=== PATIENT | female | born 1965 | race Caucasian/White ===

== ENCOUNTER 2020-06-07 11:25 | Emergency (ER) | payer MEDICAID, SELFPAY ==
[2020-06-07 11:29] VITALS: BP 116/79; PULSE 89; RESP 16
--- NOTE | 2020-06-07 11:45 | DI.RAD_ITS ---
EXAM: XR SHOULDER RT COMPLETE 2+V CLINICAL HISTORY: scapular/shoulder pain. TECHNIQUE: 2D digital imaging was performed. COMPARISON: No exams were available for comparison FINDINGS: There is no evidence of fracture or dislocation or abnormal soft tissue calcifications. No degenerat salma changes in the glenohumeral joint. No osseous lesions. IMPRESSION: No significant radiographic findings. DATA REPOSITORY: RADIATION DOSE DELIVERED:
--- NOTE | 2020-06-07 11:45 | DI.RAD_ITS ---
EXAM: XR CHEST 1V IN DI DEPT CLINICAL HISTORY: R shoulder/scapular pain. TECHNIQUE: 2D digital imaging was performed. COMPARISON: No exams were available for comparison FINDINGS: Heart size is normal. The mediastinum is not widened. Lungs are clear. No infiltrates nor obvious pleural effusions. IMPRESSION: No acute pulmonary findings on this single upright PA view of the chest. DATA REPOSITORY: RADIATION DOSE DELIVERED: All CT scans at this facility use at least one of these dose optimization techniques: automated exposure control; mA and/or kV adjustment per patient size (includes targeted e xams where dose is matched to clinical indication); or iterative reconstruction.
--- NOTE | 2020-06-07 11:45 | DI.RAD_ITS ---
EXAM: XR CERVICAL SPINE COMP 4-5V CLINICAL HISTORY: R shoulder and neck pain. TECHNIQUE: 2D digital imaging was performed. COMPARISON: No exams were available for comparison FINDINGS: There Is No evidence of acute fracture. No prevertebral soft tissue swelling. The main finding here is chronic degenerative disc disease at C5-6 level with disc space narrowing and anterior osteophyte s. On the oblique views there are bilateral Luschka joint osteophytes evident at this level. There is mild retrolisthesis of C5 upon C6 and mild anterolisthesis C4 upon C5. There is normal disc heigh t at C4-5 level. The C6-C7 level exhibits normal disc height and no listhesis. There are no cervica l ribs. No osseous lesions. IMPRESSION: Chronic degenerative disc disease at C5-6 level. As above. DATA REPOSITORY: RADIATION DOSE DELIVERED:
--- NOTE | 2020-06-07 11:55 | ED.GENADUL_ITS ---
Discharge Plan Disposition Patient Disposition: HOME Condition: Improving Discharge Details Clinical Impression: Cervical radiculopathy, Rhomboid muscle pain Primary Care Provider: Unknown,Unknown ED Provider: Arsenio Gudino Home Meds and New Rx's Prescriptions: New methocarbamol 500 mg tablet 500 mg PO Q6H PRN (Reason: Back pain or spasm) Qty: 14 RF: 0 prednisone 20 mg tablet 20 mg PO BID 4 Days Qty: 8 RF: 0 Continued lisinopril 5 mg Tablet 5 mg PO DAILY RF: 0 lamotrigine [Lamictal] 150 mg Tablet 150 mg PO BID RF: 0 dextroamphetamine-amphetamine [Adderall XR] 20 mg Capsule,Extended Release 24hr 20 mg PO DAILY RF: 0 dextroamphetamine-amphetamine [Adderall] 20 mg Tablet 20 mg PO BID RF: 0 pantoprazole 20 mg Tablet,Delayed Release (Dr/Ec) 20 mg PO DAILY RF: 0 lorazepam 1 mg Tablet 1.5 mg PO DAILY PRNRF: 0 Medical Decision Making 54-year-old female presents from home with day 3 of right shoulder and neck pain. States she felt as if she had a crick in her neck. There is some improvement with Tylenol and lidocaine patch at home. She is also been trialing ibuprofen. She is not had a rash, illness, injury. She is tender along the trapezius muscle and rhomboids on the medial scapular border of the right shoulder. Differential diagnosis does include cervical disc disease, calcific tendinitis, in addition to trapezius and rhomboid strain. Patient referred for x-ray: Chest x-ray without acute findings. Right shoulder x-ray without significant findings. X-ray of the cervical spine: Chronic degenerative disc disease at C5-6 level. With the patient's complaints, I do feel there may be some component of cervical radiculopathy. I do believe she will benefit from a steroid burst. Additionally she does appear to have a component of rhomboid spasm for which physical therapy will be of some aid, as well as gentle massage and also will offer a trial of methocarbamol. Patient stable and improved, appropriate for discharge to home. HPI General Mode of arrival: ambulatory . Date/Time Provider Initiated Documentation: 06/07/20 11:27 . Limitations to Documentation: no limitations . Information obtained by: patient . History of Present Illness 54 year old F presents to the emergency department with the chief complaint of Right shoulder and neck pain, described as moderate, Quality is described as dull and constant, and is localized to the neck, right and upper extremity. Patient distal. Patient started experiencing this day(s) and it has been constant. Medication improves symptom(s), No exacerbating factors reported . Patient notes no other symptoms.; denies chest pain, cough and fever/chills. Patient did receive the following treatments prior to arrival, NSAID Related Data Home Medications Medication Instructions Recorded Confirmed dextroamphetamine-amphetamine 20 mg PO DAILY 06/07/20 06/07/20 [Adderall XR] dextroamphetamine-amphetamine 20 mg PO BID 06/07/20 06/07/20 [Adderall] lamotrigine [Lamictal] 150 mg PO BID 06/07/20 06/07/20 lisinopril 5 mg PO DAILY 06/07/20 06/07/20 lorazepam 1.5 mg PO DAILY PRN 06/07/20 06/07/20 methocarbamol 500 mg PO Q6H PRN #14 tab 06/07/20 pantoprazole 20 mg PO DAILY 06/07/20 06/07/20 prednisone 20 mg PO BID 4 Days #8 tab 06/07/20 Previous Rx's Medication Instructions Recorded methocarbamol 500 mg PO Q6H PRN #14 tab 06/07/20 prednisone 20 mg PO BID 4 Days #8 tab 06/07/20 Allergies Allergy/AdvReac Type Severity Reaction Status Date / Time No Known Allergies Allergy Unverified 06/07/20 11:40 General Stated Complaint: Orthopedic EDER: 3 Review of Systems Narrative: No fall or injury. No rash. No chest pain or difficulty breathing. No recent cough or illness. 6 systems reviewed and otherwise no [facility] Medical History Depression Hypertension Surgical History (Updated 06/07/20 @ 11:37 by Gregor Hicks) History of section History of tonsillectomy Social History Smoking/Tobacco Use Status: Current every day Tobacco Type: e-cigarettes Tobacco: How many years used: 2 Smoking risk assessment performed?: Yes Alcohol Intake: current Alcohol Intake frequency: a few times a month Alcohol type: wine Drug use: Rarely Substance use type: marijuana Do you feel safe at home: Yes Do you feel safe in your relationship?: Yes Exam Narrative Exam Narrative: GEN: awake, alert, oriented 3. Pleasant, well groomed, interactive. HEAD: Normocephalic, atraumatic EYES: PERRL, EOMI NECK: Full ROM, no ARTI, no menigismus. Right trapezius tenderness and mild spasm, right rhomboid tenderness. Normal motor function distribution of radial/ulnar/median nerve distally. CHEST/RESP: Nontender, clear to auscultation bilateral, no wheeze/rhonchi/rales CARDIOVASCULAR: RRR, no murmur, rub megan. 2+ Rad pulse bilateral EXT: Full ROM, no edema, no rash Neuro: Grossly normal neurologic exam, conversant, interactive. Psych: Speech fluent, thoughts congruent, affect normal Course Vital Signs Vital signs: Vital Signs Pulse 89 06/07/20 11:29 Respiratory Rate 16 06/07/20 11:29 Blood Pressure 116/79 06/07/20 11:29 Temperature Source Tympanic 06/07/20 11:29 Pulse 89 06/07/20 11:29 Respiratory Rate 16 06/07/20 11:29 Respiratory Effort 06/07/20 11:35 Blood Pressure 116/79 06/07/20 11:29 Blood Pressure Position Sitting 06/07/20 11:29 Oxygen Delivery Method Room Air 06/07/20 11:29 Oxygen Flow Rate 0 06/07/20 11:29 Pain Level 5 06/07/20 11:48
[2020-06-07] MEDS: predniSONE 20 MG TAB 40 MG PO (13:36)
[2020-06-07 13:45] VITALS: BP 139/92; PULSE 80; RESP 14; TEMP 36.7; O2SAT 98
[2020-06-07] MEDS: Methocarbamol 500 MG TAB 1000 MG PO (13:51)
--- NOTE | 2020-06-09 05:42 | NUR.NOTE ---
Nursing Note: Patient called today (0530 am) to ask about dosing for over the counter medications she is currently taking. Patient reports is taking 1000 mg tylenol every 3-4 hours (which she increased to 1500 mg today), 800 mg advil every 3-4 hours, and 500 mg of methocarbamol every 4-5 hours because the pain is getting to be too much. Provider here nick consulted about this concern and recommendation was for patient to try warm compress on top of medication and ice packs and if no relief, should consider reevaluation d/t increased and uncontrolled pain on shoulder. Patient also advised to take no more than 1000 mg of tylenol up to 4 times a day and advil no more than 4 times a day with meals. Patient also advised to follow prescribed dosing schedule for methocarbamol. Patient returns verbal understanding of information provided.
== END 2020-06-07 14:08 | disposition home or self-care (01) ==
PROVIDERS: Emergency Provider Emergency Medicine
DX: M54.12 Radiculopathy, cervical region (principal); M54.89 Other dorsalgia
CPT/HCPCS: 99284; 71045; 72050; 73030; 99283; J7512

== ENCOUNTER 2020-06-09 08:28 | Emergency (ER) | payer MEDICAID, SELFPAY ==
[2020-06-09 08:35] VITALS: BP 168/110; PULSE 107; RESP 20; TEMP 36.8; O2SAT 98
--- NOTE | 2020-06-09 08:45 | ED.GENADUL_ITS ---
Discharge Plan Disposition Patient Disposition: HOME Condition: Improving Discharge Details Clinical Impression: Cervical radiculopathy Primary Care Provider: Unknown,Unknown ED Provider: Rylie Lomeli Home Meds and New Rx's Prescriptions: New gabapentin 100 mg capsule 100 mg PO TID MDD 300 PRN (Reason: Nerve Pain) Qty: 14 RF: 0 Continued lisinopril 5 mg Tablet 5 mg PO DAILY RF: 0 lamotrigine [Lamictal] 150 mg Tablet 150 mg PO BID RF: 0 dextroamphetamine-amphetamine [Adderall XR] 20 mg Capsule,Extended Release 24hr 20 mg PO DAILY RF: 0 dextroamphetamine-amphetamine [Adderall] 20 mg Tablet 20 mg PO BID RF: 0 pantoprazole 20 mg Tablet,Delayed Release (Dr/Ec) 20 mg PO DAILY RF: 0 lorazepam 1 mg Tablet 1.5 mg PO DAILY PRNRF: 0 prednisone 20 mg tablet 20 mg PO BID 4 Days Qty: 8 RF: 0 Discontinued methocarbamol 500 mg tablet 500 mg PO Q6H PRN (Reason: Back pain or spasm) Qty: 14 RF: 0 Discharge Instructions Instructions: Cervical Radiculopathy (ED) Additional Instructions: Stop methocarbamol. Follow-up with orthopedic as directed. Take the gabapentin as prescribed up to 3 times daily as needed for the nerve pain. Please be aware it may cause you to be sleepy. Use the soft cervical collar as needed for comfort. Alternate ice and heat. Follow-up with primary care provider within 3 to 5 days. Referrals: Arsenio Ingram MD [MD CONSULTING PHYSICIAN] - 1 week (Cervical Radiculopathy) Discharge Data Discharge Date/Time-TO BE ENTERED AT DEPARTURE: 06/09/20 10:33 Medical Decision Making 54-year-old female presents to the ER chief complaint of right shoulder and arm pain and anxiety. She was seen here approximately 48 hours ago and was diagnosed with some cervical radiculopathy. She did have some C-spine x-rays x- rays of her shoulder and chest which showed some degenerative changes to C6 and 7. She reports since then pain has gotten worse and the medications are not helping. She has been taking Tylenol, ibuprofen and methocarbamol in addition to her regular prescribed daily medications. She reports nausea, no vomiting, denies any radiation of pain into her chest, denies any shortness of breath. She has taken a total of 2500 mg of Tylenol this morning, 800 mg of ibuprofen at 2 AM and 6 AM and 500 mg of methocarbamol prior to arrival. She reports she has been starting to take 800 mg ibuprofen every few hours, prednisone as prescribed and the methocarbamol every 6 hours as prescribed. She has a past medical history of depression and hypertension. She appears very anxious upon arrival. She stated that yesterday she wanted to due to the pain, however she denies any suicidal ideations or wanting to hurt herself. At this time labs ordered to evaluate liver and kidney function due to pain increase taking medications over the last few days. CBC largely unremarkable, CMP shows BUN of 20 creatinine 0.7 GFR greater than 60, glucose 154. AST ALT and alk phos are all within normal limits. Urinalysis is also largely unremarkable. Tylenol level is 12 which is nontoxic, salicylate level less than 2.8. 0953: Patient reevaluation she is continuing to complain of right arm pain. We will give her gabapentin for what I do believe is cervical radiculopathy as previously diagnosed. She does find relief with inverting herself and bending forward. We will place a soft cervical collar to see if this relieves some of the pressure. Patient does report improvement in the pain after placement of the soft cervical collar. Prescription given for gabapentin 100 mg tablets up to 3 times daily as needed. Discussed caution with sedation with this medication. I did instruct her to stop the methocarbamol. Referral placed for orthopedics. Patient was given a disc of her x-ray for follow-up. Patient states that she may be moving out of town. Discussed strict return instructions with patient she verbalized understanding. Symptoms were improved prior to discharge home. Medical Records Medical records reviewed: Yes I reviewed the patient's medical records. Medical records narrative: C-spine x-ray from June 07, 2020: CLINICAL HISTORY: R shoulder and neck pain. TECHNIQUE: 2D digital imaging was performed. COMPARISON: No exams were available for comparison FINDINGS: There Is No evidence of acute fracture. No prevertebral soft tissue swelling. The main finding here is chronic degenerative disc disease at C5-6 level with disc space narrowing and anterior osteophytes. On the oblique views there are bilateral Luschka joint osteophytes evident at this level. There is mild retrolisthesis of C5 upon C6 and mild anterolisthesis C4 upon C5. There is normal disc height at C4-5 level. The C6-C7 level exhibits normal disc height and no listhesis. There are no cervical ribs. No osseous lesions. IMPRESSION: Chronic degenerative disc disease at C5-6 level. As above. HPI General Mode of arrival: ambulatory . Date/Time Provider Initiated Documentation: 06/09/20 08:30 . Limitations to Documentation: no limitations . Information obtained by: patient, RN notes reviewed and old records reviewed . HPI Narrative: 54-year-old female presents to the ER chief complaint of right sh oulder and arm pain and anxiety. She was seen here approximately 48 hours ago and was diagnosed with cervical radiculopathy. She did have some C-spine x-rays x-rays of her shoulder and chest which showed some degenerative changes to C6 and 7. She reports since then pain has gotten worse and the medications are not helping. She has been taking Tylenol, ibuprofen and methocarbamol and prednisone in addition to her regular prescribed daily medications. She reports nausea, no vomiting, denies any radiation of pain into her chest, denies any shortness of breath. She has taken a total of 2500 mg of Tylenol this morning, 800 mg of ibuprofen at 2 AM and 6 AM and 500 mg of methocarbamol prior to arrival. She reports she has been starting to take 800 mg ibuprofen every few hours, prednisone as prescribed and the methocarbamol every 6 hours as prescribed. She has a past medical history of depression and hypertension. She appears very anxious upon arrival. She stated that yesterday she wanted to due to the pain, however she denies any suicidal ideations or wanting to hurt herself. Related Data Home Medications Medication Instructions Recorded Confirmed dextroamphetamine-amphetamine 20 mg PO DAILY 06/07/20 06/09/20 [Adderall XR] dextroamphetamine-amphetamine 20 mg PO BID 06/07/20 06/09/20 [Adderall] lamotrigine [Lamictal] 150 mg PO BID 06/07/20 06/09/20 lisinopril 5 mg PO DAILY 06/07/20 06/09/20 lorazepam 1.5 mg PO DAILY PRN 06/07/20 06/09/20 pantoprazole 20 mg PO DAILY 06/07/20 06/09/20 prednisone 20 mg PO BID 4 Days #8 tab 06/07/20 06/09/20 gabapentin 100 mg PO TID PRN #14 cap MDD 300 06/09/20 Previous Rx's Medication Instructions Recorded prednisone 20 mg PO BID 4 Days #8 tab 06/07/20 gabapentin 100 mg PO TID PRN #14 cap MDD 300 06/09/20 Allergies Allergy/AdvReac Type Severity Reaction Status Date / Time No Known Allergies Allergy Unverified 06/07/20 11:40 General Stated Complaint: Orthopedic EDER: 3 Review of Systems Narrative: Constitutional: Negative for weight loss, alert and oriented, well groomed, normal body habitus, appears anxious HEENT: Denies trauma, headaches, blurry vision, nasal discharge, sore throat, trouble swallowing. Chest: Denies chest pain, palpitations, irregular rhythm, hypertension. Respiratory: Denies Shortness of breath, cough, hemoptysis. GI: Denies abdominal pain, nausea, vomiting, diarrhea, constipation. : Denies dysuria, hematuria, flank pain, rectal bleeding. No loss of bowel or bladder control. Musculoskeletal: Reports right shoulder pain with radiation down the right arm in the dorsum of her right hand. Pain is relieved when lying down, or bending her head forward, worse with movement. Neuro: Denies dizziness, blurry vision, weakness, syncope, headache or facial numbness. Hematologic: Denies easy bruising, intolerance to heat or cold, hair loss. [facility] Medical History Depression Hypertension Surgical History History of section History of tonsillectomy Social History Smoking/Tobacco Use Status: Current every day Tobacco Type: e-cigarettes Tobacco: How many years used: 2 Smoking risk assessment performed?: Yes Alcohol Intake: current Alcohol Intake frequency: a few times a month Alcohol type: wine Drug use: Rarely Substance use type: marijuana Do you feel safe at home: Yes Do you feel safe in your relationship?: Yes Exam Narrative Exam Narrative: Constitutional: Alert and oriented x3. Appears stated age. Normal body habitus. Head: Normocephalic, no trauma. Eyes: Pupils PERRLA, Red reflex noted, EOM's intact. Eyelids symmetrical without lesions, discharge, or swelling. ENT: Bilateral TM's WNL, External ear normal to inspection, no mastoid TTP, swelling, or erythema, Nasal turbinates WNL, no nasal discharge. Normal dentition, Posterior pharynx WNL, no exudate. Chest: RRR, Normal S1, S2, distal pulses intact. Resp: Lungs clear to auscultation bilaterally, no wheezes, rales, or rhonchi. Musculoskeletal: Normal gait, 5/5 strength to all four extremities. No deformity, no elicited pain with palpation of the posterior scapula or the shoulder area. Mild C-spine tenderness with palpation crepitus no step-off. Circulation sensation movement intact to bilateral upper extremities. Skin: No suspicious rashes or lesions. Capillary refill less than 2 sec. Neurologic: Cranial nerves II-XII intact. Alert and oriented x 3. Does report nerve-type pain into the dorsum of right hand. Hematologic/Lymphatic: No ecchymosis, no lymphadenopathy. Course Vital Signs Vital signs: Vital Signs Temperature 36.8 C 06/09/20 08:35 Pulse 107 H 06/09/20 08:35 Respiratory Rate 20 06/09/20 08:35 Blood Pressure 168/110 H 06/09/20 08:35 Pulse Oximetry 98 06/09/20 08:35 Temperature 36.8 C 06/09/20 08:35 Temperature Source Temporal Artery Scan 06/09/20 08:35 Pulse 107 H 06/09/20 08:35 Respiratory Rate 20 06/09/20 08:35 Respiratory Effort 06/09/20 08:39 Blood Pressure 168/110 H 06/09/20 08:35 Blood Pressure Position Supine 06/09/20 08:35 Pulse Oximetry 98 06/09/20 08:35 Oxygen Delivery Method Room Air 06/09/20 08:35 Oxygen Flow Rate 0 06/09/20 08:35 Pain Level 10 06/09/20 08:40
[2020-06-09] MEDS: LORazepam 2 MG/ML VIAL 0.5 MG IVP (08:53)
[2020-06-09] MEDS: Normal Saline 1,000 ML 1000 ML IV (08:54)
[2020-06-09 09:05] LABS: Abs Immature Grans 0.05 10^3/uL (0.0-0.06); Absolute Basophil Count 0.01 10^3/uL (0.0-0.2); Absolute Monocyte Count 0.33 10^3/uL (0.1-0.8); Absolute Neutrophil Count 7.77 10^3/uL (1.2-6.7); Basophils % 0.1; HCT 39.8 % (36.0-46.0); HGB 12.8 g/dL (11.2-15.7); Immature Grans % 0.5; Lymphocytes % 10.9; MCH 29.2 pg (27.0-33.0); MCHC 32.2 % (32.0-36.0); MCV 90.9 fL (80-95); MPV 9.3 fL (8.0-11.0); Monocytes % 3.6; Neutrophils % 84.9; Nucleated RBC 0 %; Platelet Count 343 10^3/uL (130-400); RBC 4.38 10^6/uL (3.93-5.22); RDW 13.1 % (11.7-14.6); RDW-SD 42.8 fL; WBC 9.16 10^3/uL (4.4-10.8)
[2020-06-09 09:19] LABS: ALT 25 U/L (14-59); AST 17 U/L (15-37); Albumin 4.3 g/dL (3.4-5.0); Alkaline Phosphatase 61 U/L (46-116); Anion Gap 10.5 mmol/L (3-11); BUN 20 mg/dL (7-18); Bilirubin, Total 0.2 mg/dL (0.2-1.0); CO2 26.5 mmol/L (21.0-32.0); CREATININE 0.7 mg/dL (0.55-1.02); Calcium 9.2 mg/dL (8.5-10.1); Chloride 105 mmol/L (98-107); Glucose 154 mg/dL (74-106); Magnesium 2.2 mg/dL (1.8-2.4); Potassium 3.5 mmol/L (3.5-5.1); Sodium 142 mmol/L (136-145); Total Protein 8.1 g/dL (6.4-8.2)
[2020-06-09 09:29] LABS: Bilirubin Small (Negative); Blood Negative (Negative); Clarity Clear (Clear); Glucose Negative (Negative); Ketones Negative (Negative); Leukocyte Esterase Negative (Negative); Nitrite Negative (Negative); Specific Gravity >= 1.030 (1.005-1.025); Urobilinogen 0.2 EU/dL (Up TO 0.2)
[2020-06-09 09:36] LABS: Acetaminophen 12 ug/mL (10-30)
[2020-06-09 09:37] LABS: Salicylate < 2.8 mg/dL (<2.8)
[2020-06-09 09:38] LABS: Bacteria Negative HPF (Negative); Casts 3-5 Hyaline LPF (Negative); Crystals Negative HPF (Negative); Epithelial Cells Few HPF (Negative); Mucus Trace (Negative); RBC 0-2 HPF (0-2)
[2020-06-09 09:40] LABS: C & S Indicated? No
[2020-06-09] MEDS: Gabapentin 300 MG CAP PO (09:49)
--- NOTE | 2020-06-09 09:59 | NUR.NOTE ---
Nursing Note: c-collar soft 2.5 applied for comfort. pt sts helps with pain. denies any needs at this time.
[2020-06-09 10:11] VITALS: BP 127/77; PULSE 93; RESP 16; O2SAT 98
== END 2020-06-09 10:33 | disposition home or self-care (01) ==
PROVIDERS: Emergency Provider Registered Nurse Emergency
DX: M54.12 Radiculopathy, cervical region (principal)
CPT/HCPCS: 80053; 96361; 96374; 99284; 80329; 81003; 81015; 83735; 85025; 99283; J2060

== ENCOUNTER 2020-06-12 18:39 | Emergency (ER) | payer MEDICAID, SELFPAY ==
[2020-06-12 18:44] VITALS: BP 180/114; PULSE 102; TEMP 36.2; O2SAT 100
[2020-06-12] MEDS: Lidocaine 5% Patch 1 PATCH TP (20:23)
[2020-06-12] MEDS: Ketorolac 30 MG/ML VIAL IVP (20:23)
[2020-06-12] MEDS: Lactated Ringers 500 ML IV (20:23)
[2020-06-12 20:28] LABS: Abs Immature Grans 0.07 10^3/uL (0.0-0.06); Absolute Basophil Count 0.02 10^3/uL (0.0-0.2); Absolute Eosinophil Count 0.06 10^3/uL (0.0-0.7); Absolute Lymphocyte Count 3.53 10^3/uL (1.2-3.4); Absolute Monocyte Count 0.55 10^3/uL (0.1-0.8); Absolute Neutrophil Count 3.55 10^3/uL (1.2-6.7); Basophils % 0.3; Eosinophils % 0.8; HCT 37.1 % (36.0-46.0); HGB 12.2 g/dL (11.2-15.7); Immature Grans % 0.9; Lymphocytes % 45.4; MCH 29.3 pg (27.0-33.0); MCHC 32.9 % (32.0-36.0); MCV 89.2 fL (80-95); MPV 8.7 fL (8.0-11.0); Monocytes % 7.1; Neutrophils % 45.5; Nucleated RBC 0 %; Platelet Count 295 10^3/uL (130-400); RBC 4.16 10^6/uL (3.93-5.22); RDW 13.2 % (11.7-14.6); WBC 7.78 10^3/uL (4.4-10.8)
[2020-06-12 20:43] LABS: ALT 25 U/L (14-59); AST 13 U/L (15-37); Albumin 3.8 g/dL (3.4-5.0); Alkaline Phosphatase 44 U/L (46-116); Anion Gap 8.6 mmol/L (3-11); BUN 17 mg/dL (7-18); Bilirubin, Total 0.2 mg/dL (0.2-1.0); CO2 29.4 mmol/L (21.0-32.0); CREATININE 0.7 mg/dL (0.55-1.02); Calcium 8.5 mg/dL (8.5-10.1); Chloride 104 mmol/L (98-107); Glucose 85 mg/dL (74-106); Potassium 3.3 mmol/L (3.5-5.1); Sodium 142 mmol/L (136-145); Total Protein 7.1 g/dL (6.4-8.2)
[2020-06-12 20:44] LABS: Acetaminophen < 2 ug/mL (10-30)
[2020-06-12] MEDS: Potassium Chloride 20 MEQ TABCR PO (21:14)
[2020-06-12] MEDS: Gabapentin 100 MG CAP 200 MG PO ×2 (21:56→22:35)
--- NOTE | 2020-06-12 22:09 | ED.GENADUL_ITS ---
Discharge Plan Disposition Patient Disposition: HOME Condition: Stable Discharge Details Clinical Impression: Cervical radiculopathy, Rhomboid muscle pain Primary Care Provider: Unknown,Unknown ED Provider: Amadeo Welsh Home Meds and New Rx's Prescriptions: New gabapentin 100 mg capsule 200 mg PO TID 7 Days Qty: 40 RF: 0 Continued lisinopril 5 mg Tablet 5 mg PO DAILY RF: 0 lamotrigine [Lamictal] 150 mg Tablet 150 mg PO BID RF: 0 dextroamphetamine-amphetamine [Adderall XR] 20 mg Capsule,Extended Release 24hr 20 mg PO DAILY RF: 0 dextroamphetamine-amphetamine [Adderall] 20 mg Tablet 20 mg PO BID RF: 0 pantoprazole 20 mg Tablet,Delayed Release (Dr/Ec) 20 mg PO DAILY RF: 0 lorazepam 1 mg Tablet 1.5 mg PO DAILY PRNRF: 0 Discontinued gabapentin 100 mg capsule 100 mg PO TID MDD 300 PRN (Reason: Nerve Pain) Qty: 14 RF: 0 Discharge Instructions Instructions: Gabapentin (By mouth), Cervical Radiculopathy (ED) Additional Instructions: Please take ibuprofen over the counter. Take 600mg by mouth every 6 hours as needed for pain. Please take acetaminophen (tylenol) - 500mg every 4-6 hours by mouth as needed for pain. Use [id number] cough lidocaine patches. Dose according to label Please follow-up with your primary care physician or a local PCP. Additional diagnostic testing including MRI of the cervical spine may be necessary should symptoms persist or new concerning symptoms develop. Return to the ER immediately for any worsening or new concerning symptoms. Discharge Data Discharge Date/Time-TO BE ENTERED AT DEPARTURE: 06/12/20 22:50 Medical Decision Making 54-year-old female recently diagnosed with cervical radiculopathy and muscle spasm, degenerative disc disease of the cervical spine on x-ray returns to ED with persistent pain and paresthesias of the right upper extremity, she has run out of gabapentin prescription. Patient has been taking a significant amount of Tylenol. Consider acetaminophen toxicity. Patient was given Toradol 30 mg IV, gabapentin 200 mg, IV fluid rehydration and lidocaine patch placed. Labs reviewed and no leukocytosis noted. Normal Tylenol and LFTs. I suspect patient is suffering from continued cervical radiculopathy and would benefit from continued gabapentin as well as continued anti-inflammatory. Plan will be for continuation of gabapentin as this is providing relief and close out close outpatient follow-up. I explained that if her symptoms do persist or she develops new concerning symptoms including weakness she will need additional outpatient diagnostic testing including MRI. Plan for close out patient follow-up with her PCP in [place] or locally if follow-up cannot be arranged with her PCP. Disposition decision was made weighing the risks and benefits of hospitalization versus outpatient treatment, the risk for further decompensation, and the patient's wishes. The patient was stable and requested discharge. Prior to discharge, my usual and customary return precautions were reviewed with the patient - this included follow-up instructions and reason to return to the emergency department if condition worsens, does not improve as expected, or other new concerns arise. I discussed Tylenol dosing with the patient. She understands risk of overdosing on Tylenol. HPI General Mode of arrival: ambulatory . Date/Time Provider Initiated Documentation: 06/12/20 18:56 . Limitations to Documentation: no limitations . Information obtained by: patient . HPI Narrative: 54-year-old female with history of depression and anxiety presents with chief complaint of pain in her right neck and arm. She notes that pain started about 1 week ago when she woke up feeling like she had a crick in her neck. She does not recall any specific trauma but does note that she has been lifting heavy objects with recent moving. She notes that she was seen here in the emergency department on 06/04/2020 having had the pain for a couple days and was diagnosed with cervical radicu lopathy and muscle spasm.. She was started on a prednisone burst and low-carb. She returned on 06/07/20 with worsening pain and concern that the methocarbamol was not helping. She had unremarkable blood work on her second visit and was started on gabapentin 100 mg 3 times daily. She was instructed to stop the methocarbamol. Patient notes that since discharge, she has completed prednisone burst and also notes that she has completed gabapentin course. She states she had been taking more gabapentin than prescribed as it did seem to help her pain. She notes that she has been taking a significant of Tylenol as well and up to 4 g daily. She continues to intermittently use ibuprofen. Patient also notes that she is prescribed lorazepam for anxiety which she takes when she has to drive. She took lorazepam prior to driving here today and thinks that this may be helping symptoms. Patient notes associated tingling numbness in her anterior lateral arm and digits 1-4. No weakness. No fever or rash. Patient denies headache . Related Data Home Medications Medication Instructions Recorded Confirmed dextroamphetamine-amphetamine 20 mg PO DAILY 06/07/20 06/12/20 [Adderall XR] dextroamphetamine-amphetamine 20 mg PO BID 06/07/20 06/12/20 [Adderall] lamotrigine [Lamictal] 150 mg PO BID 06/07/20 06/12/20 lisinopril 5 mg PO DAILY 06/07/20 06/12/20 lorazepam 1.5 mg PO DAILY PRN 06/07/20 06/12/20 pantoprazole 20 mg PO DAILY 06/07/20 06/12/20 gabapentin 200 mg PO TID 7 Days #40 cap 06/12/20 06/12/20 Previous Rx's Medication Instructions Recorded gabapentin 200 mg PO TID 7 Days #40 cap 06/12/20 Allergies Allergy/AdvReac Type Severity Reaction Status Date / Time No Known Allergies Allergy Unverified 06/12/20 18:51 General Stated Complaint: Nk/Back Pain EDER: 3 Review of Systems Constitutional Constitutional: Denies fever(s) ENT Comments: Patient notes that a couple weeks ago she had some swelling to her lower face and thought she had some dental inflammation, this resolved Cardiovascular Cardiovascular: Denies chest pain Integumentary/Breasts Skin/Breast: Denies rash Neurologic Neurologic: Reports as per [facility] Medical History Depression Hypertension Surgical History History of section History of tonsillectomy Social History Smoking/Tobacco Use Status: Current every day Tobacco Type: e-cigarettes Tobacco: How many years used: 2 Smoking risk assessment performed?: Yes Alcohol Intake: current Alcohol Intake frequency: a few times a month Alcohol type: wine Drug use: Rarely Substance use type: marijuana Do you feel safe at home: Yes Do you feel safe in your relationship?: Yes Exam Const General: cooperative and no acute distress HENMT Head: normocephalic and atraumatic Mouth: moist mucous membranes Eyes Conjunctivae: normal conjunctivae Sclera: normal sclerae EOM: EOM intact bilaterally Neck Neck: trachea midline and supple Resp Auscultation: clear to auscultation bilaterally, no rales, no rhonchi and no wheezes Cardio Rate: regular rate and not tachycardic Rhythm: regular rhythm Back/Spine/Pelvis Cervical Spine: cervical muscular tenderness (rt) and No cervical spinal tenderness Thoracic/Lumbar Spine: thoracic and lumbar spine normal to inspection Skin General skin exam: no rashes or lesions noted Neuro General: patient alert, patient awake, patient oriented x3 and tone normal Psych Appearance: grossly normal Mental Status: mental status grossly normal Speech and Movement: speech and movement normal Affect: anxious affect Course Vital Signs Vital signs: Vital Signs Temperature 36.2 C L 06/12/20 18:44 Pulse 102 H 06/12/20 18:44 Blood Pressure 180/114 H 06/12/20 18:44 Pulse Oximetry 100 06/12/20 18:44 Temperature 36.2 C L 06/12/20 18:44 Temperature Source Temporal Artery Scan 06/12/20 18:44 Pulse 102 H 06/12/20 18:44 Respiratory Effort Non-Labored 06/12/20 18:50 Blood Pressure 180/114 H 06/12/20 18:44 Blood Pressure Position Sitting 06/12/20 18:44 Pulse Oximetry 100 06/12/20 18:44 Oxygen Delivery Method Room Air 06/12/20 18:44 Oxygen Flow Rate 0 06/12/20 18:44 Pain Level 10 06/12/20 18:44 Lab/Test Results Lab/Test Results: Laboratory Tests Range/Units 06/12/20 06/12/20 20:10 20:10 WBC (4.4-10.8) 10^3/uL 7.78 RBC (3.93-5.22) 10^6/uL 4.16 Hgb (11.2-15.7) g/dL 12.2 Hct (36.0-46.0) % 37.1 MCV (80-95) fL 89.2 MCH (27.0-33.0) pg 29.3 MCHC (32.0-36.0) % 32.9 RDW (11.7-14.6) % 13.2 Plt Count (130-400) 10^3/uL 295 MPV (8.0-11.0) fL 8.7 Immature Gran % 0.9 Neutrophils % 45.5 Lymphocytes % 45.4 Monocytes % 7.1 Eosinophils % 0.8 Basophils % 0.3 Nucleated RBC % % 0 Absolute Neutrophils (1.2-6.7) 10^3/uL 3.55 Absolute Lymphocytes (1.2-3.4) 10^3/uL 3.53 H Absolute Monocytes (0.1-0.8) 10^3/uL 0.55 Absolute Eosinophils (0.0-0.7) 10^3/uL 0.06 Absolute Basophils (0.0-0.2) 10^3/uL 0.02 Sodium (136-145) mmol/L 142 Potassium (3.5-5.1) mmol/L 3.3 L Chloride (98-107) mmol/L 104 Carbon Dioxide (21.0-32.0) mmol/L 29.4 Anion Gap (3-11) mmol/L 8.6 BUN (7-18) mg/dL 17 Creatinine (0.55-1.02) mg/dL 0.7 Estimated GFR/1.73 m2 (mL/min/1.73m2) >= 60.00 Glucose (74-106) mg/dL 85 Calcium (8.5-10.1) mg/dL 8.5 Total Bilirubin (0.2-1.0) mg/dL 0.2 AST (15-37) U/L 13 L ALT (14-59) U/L 25 Alkaline Phosphatase (46-116) U/L 44 L Total Protein (6.4-8.2) g/dL 7.1 Albumin (3.4-5.0) g/dL 3.8 Acetaminophen (10-30) ug/mL < 2
--- NOTE | 2020-06-12 22:19 | NUR.NOTE ---
Nursing Note: REFERAL SENT TO CM TO MAKE APPOINTMENT WITH PRIMARY THIS WEEK FOR CERVICAL ISSUES AND TO BE AWARE OF THIRD ED VISIT RECENTLY 06/12/20
[2020-06-12 22:20] VITALS: BP 129/98; PULSE 90; RESP 16; O2SAT 99
[2020-06-12] MEDS: Acetaminophen 500 MG TAB PO (22:42)
--- NOTE | 2020-06-19 17:29 | PDOC.ERCMPRO ---
- If Service Date Differs Date of service: 06/15/20 Time of Service: 10:00 Care Management Progress Note Kia is seen in the ED for cervical radiculopathy and number in her hand. At the request of ED provider, a referral is sent to THAD Nuñez, of [facility], on-call provider, to assist Kia in obtaining a follow up appointment and in establishing care with a PCP. She has Medicaid for insurance.
== END 2020-06-12 22:50 | disposition home or self-care (01) ==
PROVIDERS: Emergency Provider Student in an Organized Health Care Education/Training Program
DX: M54.12 Radiculopathy, cervical region (principal); M25.511 Pain in right shoulder; I71.01 Dissection of thoracic aorta
CPT/HCPCS: 70496; 70498; 71275; 80053; 87635; 93005; 96361; 96365; 96366; 96374; 96375; 96376; 99284; 99291; 99292; 80329; 84484; 85025; 85379; 93010; 99283; J1885; J2060; Q9967

== ENCOUNTER 2020-06-12 22:57 | Emergency (ER) | payer MEDICAID, SELFPAY ==
[2020-06-12 23:06] VITALS: BP 146/97; PULSE 93; RESP 16; TEMP 36.4; O2SAT 100
--- NOTE | 2020-06-12 23:30 | DI.CT_ITS ---
EXAM: CT THORAX CTA CLINICAL HISTORY: right shoulder and armchest and neck pain severe. TECHNIQUE: Imaging Protocol: CT angiography of the chest was performed using pulmonary embolus amira col. Multi planar reconstructions were performed. CONTRAST MATERIAL: Intravenous: Omnipaque 350 Contrast volume: 100 cc COMPARISON: CT CT BRAIN NECK CTA from 06/13/2020 FINDINGS: CHEST: PULMONARY ARTERIES: Less than optimally opacified. No central pulmonary emboli evident. LUNGS: There are no infiltrates nor evidence of pulmonary infarction.. There are no pleural effusions . MEDIASTINUM: There is no hilar nor mediastinal adenopathy. Visualized thyroid unremarkable. CARDIAC: Heart size is upper normal. There is no pericardial effusion. There is no significant shift of the interventricular septum. THORACIC AORTA: There is a Je[place] type A aortic dissection which begins just above the aortic root and involves the right lateral aspect of the brachiocephalic artery and the proximal aspect of the ri ght subclavian artery. No definite involvement of the common carotid arteries. No dissection flap s een in the descending thoracic aorta. There is no significant atherosclerotic disease evident within the aorta. PARTIALLY VISUALIZED UPPERMOST ABDOMEN: No obvious findings OSSEOUS: No significant osseous lesions.. IMPRESSION: 1. There is a [place] type A dissection of the ascending thoracic aorta as described above..This valdes s not have the appearance of motion artifact at this level. No dissection in the descending thoracic aorta and visualized upper abdomen. 2. Heart size is normal. There is no pericardial effusion/hemopericardium.. 3. No obvious central pulmonary emboli. Opacification of more distal pulmonary arteries is insuffici ent for assessment. 4. No pulmonary infiltrates nor pleural effusions. RADIATION DOSE DELIVERED: 317.29mGy.cm Total DLP DATA REPOSITORY: All CT scans at this facility are submitted to the National Radiology Data Registry (NRDR) Dose Index Registry (DIR) with the [employer] (ACR). RADIATION OPTIMIZATION: All CT scans at this facility use at least one of these dose optimization te chniques: automated exposure control; mA and/or kV adjustment per patient size (includes targeted exa ms where dose is matched to clinical indication); or iterative reconstruction.
--- NOTE | 2020-06-12 23:30 | RT.EKG_ITS ---
APPROVED REPORT Exam: Resting ECG Patient Location: E HR:107 bpm ECG Measurements Heart Rate 107 AXIS DE 165 P 62 QRSd 87 QRS 42 QT 321 T 52 QTc 429 Conclusion Sinus tachycardia...rate> 99 Physiciam:No stemi. small q wave in lead III. No other abnormality
--- NOTE | 2020-06-12 23:30 | DI.CT_ITS ---
EXAM: CT BRAIN NECK CTA CLINICAL HISTORY: severe right arm, neck, shoulder pain. TECHNIQUE: Imaging Protocol: Axial CT angiography was performed with multi-slice acquisition and mu lti-planar and/or 3D reconstructions. CONTRAST MATERIAL: Intravenous: Omnipaque 350 Contrast volume:structured data in ml COMPARISON: No exams were available for comparison FINDINGS: CTA Neck W: Anterior circulation: There is no significant stenosis at the origin of the common carotid arteries. There appears to be b ovine configuration of the aortic arch. Both common carotid arteries ascend with normal luminal diameters. There is heavily calcified plaque posterior wall upper carotid bifurcation proximal right internal artery with moderate stenosis at th is level. Above this level the internal carotid arteries patent in the neck. The opposite-left comm on carotid artery exhibits normal diameter. Mild plaque seen at the level of the bulb and proximal I CA with some mild stenosis at this level. Above this level the left ICA is patent in the neck and sk ull base. Posterior circulation: Both vertebral arteries originated conventional fashion off subclavian arteries with no stenosis at t heir origins and no significant stenosis in the subclavian arteries proximal to the vertebral artery takeoff points. Both vertebral arteries ascend in the foramen transversarium normal luminal diameter s, the right being dominant. There is no intraluminal thrombus either side and no evidence of verteb ral artery dissection. At the skull base both vertebral arteries contribute to the formation of the basilar artery. CTA Brain W: Anterior circulation: Both internal carotid arteries are patent in the skull base-carotid canals and are also demonstrated be patent within the cavernous sinuses. Supraclinoid aspects are patent. Both middle cerebral arter ies are patent. Both A1 segments are patent. Anterior cerebral arteries are also patent. There is no evidence of aneurysm at the level of the anterior communicating artery. Posterior circulation: Both vertebral arteries contribute to the formation of the basilar artery at the skull base. Basilar artery ascends in the midline with normal luminal diameter. Distally it gives off bilateral superio r cerebellar arteries and above this level terminates as patent bilateral posterior cerebral arteries . There is a thin posterior communicating artery noted on the left side of the [id number]-sw-Piabln. No aneurysms. CT BRAIN: There is no evidence of intracranial hemorrhage, mass effect, or shift of midline structures. There are no extra-axial fluid collections. Ventricles are not enlarged or shifted and there is no blood w ithin the ventricular system nor within the basal cisterns. There are no ring enhancing lesions in t he brain and no abnormal meningeal enhancement. IMPRESSION: 1. Patent intracranial arteries. No evidence of intracranial aneurysm. 2. No evidence of intracranial hemorrhage no ring enhancing lesions. 3. Moderate stenosis at both carotid bifurcations and proximal internal carotid arteries. RADIATION DOSE DELIVERED: 1,812.43mGy.cm Total DLP DATA REPOSITORY: All CT scans at this facility are submitted to the National Radiology Data Registry (NRDR) Dose Index Registry (DIR) with the [employer] (ACR). RADIATION OPTIMIZATION: All CT scans at this facility use at least one of these dose optimization te chniques: automated exposure control; mA and/or kV adjustment per patient size (includes targeted exa ms where dose is matched to clinical indication); or iterative reconstruction.
--- NOTE | 2020-06-12 23:34 | NUR.NOTE ---
Nursing Note: This RN enter room to start IV, pt already dressed standing up holding her purse asking this RN to tell Dr Jaquez, that I'm going to go. I don't want anything or tests, pls just tell the doctor that I'm going to leave and hurry. Dr Jaquez notified.
--- NOTE | 2020-06-12 23:57 | NUR.NOTE ---
Nursing Note: Per EDP , hold on ativan
[2020-06-13] VITALS (96 sets, daily range): BP systolic 116–174; BP diastolic 71–109; PULSE 71–115; RESP 10–32; O2SAT 80–100
[2020-06-13] MEDS: Normal Saline - Diluent 50 ML VIAL IV ×2 (00:10→00:39)
[2020-06-13 00:14] LABS: Troponin I < 0.05 ng/mL (<0.06)
[2020-06-13] MEDS: Normal Saline Flush 10 ML SYR IVP (00:16)
--- NOTE | 2020-06-13 00:56 | DI.VRAD_ITS ---
PROCEDURE INFORMATION: Exam: CT Angiography Head With Contrast, Arteriography Exam date and time: 06/12/2020 11:33 PM Age: 54 years old Clinical indication: Other: Severe right arm, neck, shoulder pain TECHNIQUE: Imaging protocol: Computed tomography angiography of the head with contrast. Exam focused on the arteries. 3D rendering (Not supervised by radiologist): MIP and/or 3D reconstructed images were created by the technologist. Contrast material: VISIPAQUE 320; Contrast volume: 85 ml; Contrast route: INTRAVENOUS (IV); COMPARISON: No relevant prior studies available. FINDINGS: ANTERIOR CIRCULATION: Right internal carotid artery: Intracranial segment is patent with no significant stenosis. No aneurysm. Right middle cerebral artery: No occlusion or significant stenosis. No aneurysm. Right anterior cerebral artery: No occlusion or significant stenosis. No aneurysm. Left internal carotid artery: Intracranial segment is patent with no significant stenosis. No aneurysm. Left middle cerebral artery: No occlusion or significant stenosis. No aneurysm. Left anterior cerebral artery: No occlusion or significant stenosis. No aneurysm. POSTERIOR CIRCULATION: Right vertebral artery: No occlusion or significant stenosis. No aneurysm. Left vertebral artery: No occlusion or significant stenosis. No aneurysm. Basilar artery: No occlusion or significant stenosis. No aneurysm. Right posterior cerebral artery: No occlusion or significant stenosis. No aneurysm. Left posterior cerebral artery: No occlusion or significant stenosis. No aneurysm. Brain: No definite mass, mass effect, or midline shift. Cerebral ventricles: No ventriculomegaly. Bones/joints: Unremarkable. No acute fracture. Soft tissues: Unremarkable. IMPRESSION: No large vessel stenosis or occlusion. PROCEDURE INFORMATION: Exam: CT Angiography Neck With Contrast Exam date and time: 06/12/2020 11:33 PM Age: 54 years old Clinical indication: Other: Severe right arm, neck, shoulder pain TECHNIQUE: Imaging protocol: Computed tomography angiography of the neck with contrast. 3D rendering (Not supervised by radiologist): MIP and/or 3D reconstructed images were created by the technologist. Radiation optimization: All CT scans at this facility use at least one of these dose optimization techniques: automated exposure control; mA and/or kV adjustment per patient size (includes targeted exams where dose is matched to clinical indication); or iterative reconstruction. Contrast material: VISIPAQUE 320; Contrast volume: 85 ml; Contrast route: INTRAVENOUS (IV); COMPARISON: No relevant prior studies available. FINDINGS: Right common carotid artery: No stenosis. No dissection or occlusion. Right internal carotid artery: Calcified plaque at the bulb with mild stenosis. No dissection or occlusion. Right external carotid artery: No occlusion or stenosis of the origin. Right vertebral artery: No stenosis. No dissection or occlusion. Left common carotid artery: No stenosis. No dissection or occlusion. Left internal carotid artery: Moderate stenosis at the bulb. No dissection or occlusion. Left external carotid artery: No occlusion or stenosis of the origin. Left vertebral artery: No stenosis. No dissection or occlusion. Bones/joints: No acute fracture. Soft tissues: Normal. No significant soft tissue swelling. IMPRESSION: No large vessel occlusion Moderate left and mild right carotid stenoses Patent vertebral arteries REFERENCES: NASCET CRITERIA. The degree of internal carotid artery stenosis is based on NASCET criteria. Normal is no stenosis. Mild is less than 50% stenosis. Moderate is 50-69% stenosis. Severe is 70% to 99% stenosis. Total occlusion is no detectable patent lumen. Dictated and Authenticated by: Dejan Argueta MD. Ordering:ELIZABETH Flor MD
[2020-06-13] MEDS: Omnipaque 350 MG/ML 50 ML BTL IJ (01:07)
--- NOTE | 2020-06-13 01:16 | W.ED.GENAD ---
Discharge Plan Disposition Patient Disposition: HOME Condition: Stable Discharge Details Clinical Impression: Aortic dissection, Acute pain of right shoulder Primary Care Provider: Unknown,Unknown ED Provider: Chacho Thomas Home Meds and New Rx's Prescriptions: Continued lisinopril 5 mg Tablet 5 mg PO DAILY RF: 0 lamotrigine [Lamictal] 150 mg Tablet 150 mg PO BID RF: 0 dextroamphetamine-amphetamine [Adderall XR] 20 mg Capsule,Extended Release 24hr 20 mg PO DAILY RF: 0 dextroamphetamine-amphetamine [Adderall] 20 mg Tablet 20 mg PO BID RF: 0 pantoprazole 20 mg Tablet,Delayed Release (Dr/Ec) 20 mg PO DAILY RF: 0 lorazepam 1 mg Tablet 1.5 mg PO DAILY PRNRF: 0 gabapentin 100 mg capsule 200 mg PO TID 7 Days Qty: 40 RF: 0 Medical Decision Making This is a 54-year-old female with a past medical history of depression, hypertension, anxiety, everyday smoker, who presents today for right neck shoulder and arm pain. Pain has been present for the last 6 days. Patient states that it came on suddenly without any particular aggravating factor. The pain is described as sharp, achy, pain found in her right neck and shoulder and upper chest. Currently she states that the pain feels like her arm and shoulder are breaking. She admits to numbness in her right arm intermittently that seems to come and go every few minutes. She denies any falls, trauma, fever or chills. She denies any IV or illicit drug use. Of note historically the patient was originally seen here on 06/07 where she had negative cervical spine x-rays, she was diagnosed with cervical radiculopathy and rhomboid muscle pain. She was started on NSAIDs, muscle relaxants and steroids. Patient had no improvement of her symptoms with this. She had only mild improvement when she would take Tylenol, but no improvement of significance with the other medications. During the early course of the pain she would have mild improvement with heat and the prednisone but this was only for 1 day. She came in again earlier this evening where she had some lab work performed, all of which was relatively unremarkable. Salicylate and acetaminophen levels were unremarkable. Liver function stable. She was discharged home and then came back moments later with severe worsening of her right arm neck and shoulder pain. Again she currently describes it as feeling like all the bones are breaking in conjunction with numbness in the right arm, and a burning sensation. Patient denies any previous cardiac history. No other complaints at this time. Examination of the patient shows no significant abnormalities. She has equal pulses good capillary refill good movement of the arm. No evidence of bony fracture or abnormality clinically. She does have diminished sensation subjectively over the C6-C7 C8-T1 dermatomes, however it is subjectively diminished, and sensation is still definitely present. No murmurs that I can detect otherwise. However the patient in spite of the relatively unremarkable findings appears to be in fairly severe pain. She is pacing around the room, holding her arm and shoulder, often times doubled over in pain. Vital signs demonstrate notable hypertension and mild to moderate tachycardia. Patient has been seen and evaluated 3 times here. Exams appeared unremarkable in those instances. Review of the previous episodes seems to demonstrate appropriate work-ups considering the clinical presentations at that. Currently with the patient's continued and present symptoms I do feel that broadening of the differential is appropriate. Cardiac etiology seems unlikely but with her risk factors is on the differential. Atypical aortic or vertebral or carotid pathology/dissection is on the differential. Reflex sympathetic dystrophy versus atypical neuropathic pain is certainly to be considered-in the absence of other objective viable findings. We will get an EKG and troponin, get a CTA of the chest and neck and head. I will offer the patient with morphine for pain control and also Ativan as she does appear to be very anxious with her symptoms at this time. Will monitor closely and reassess. 2:20 AM Radiology has called them contact me, they are concerned that the patient demonstrates a [place] type a/[place] type II aortic dissection. Area where the dissection may be occurring is in the area concerning for motion artifact, and this was discussed with radiology however they feel that upon review of the image lends itself to a much greater concern for likelihood for dissection than motion artifact. Esmolol was immediately ordered to bring down the patient's heart rate and blood pressure. Heart rate and blood pressure prior to treatment was 100 for heart rate, and 170 for systolic blood pressure. Pain is now better controlled and she is no longer writhing around holding her arm with 1 of Dilaudid, 8 of morphine and 1.5 of Ativan. I contacted cardiothoracic at [facility] and discussed the case with Dr. Arteaga of [facility]. He is concerned that the findings represent motion artifact. He did recommend getting a repeat CAT scan/CTA once her heart rate has come down to a more normal level with the esmolol. 3:55 AM Repeat CTA of the chest per virtual radiology demonstrates continued atypical abnormality of the aorta concerning for dissection, radiologist now feels that there is an interval change in appearance of the right brachiocephalic artery which now has a cuff of relative hypodensity surrounding the central opacified lumen. D-dimer was ordered and is normal. Patient remains on the esmolol drip for heart rate and blood pressure control. Upon repeat discussion, Dr. Arteaga still is concern for motion artifact, but with the 2 studies by radiology both concerned for this finding he does understand the current dilemma and situation. He recommends further evaluation with [facility]. Unfortunately upon discussion of transfer to the ED at [facility] for this the transfer center made it unequivocally clear that [facility] is not accepting patients for transfer at this level of acuity. Dr. Arteaga felt that perhaps transfer to a center with current stay/availability would be the next best option then. We did reach out to the [facility] and discussed the case with Dr. Valdivia, she agrees on the equivocal component of the imaging upon review of both images, but does understand the need for further testing. She has accepted the patient, the patient will be transferred directly to the emergency department at [facility]. Discussed the case with Dr. Painting, and she also agrees with the transfer and accepts to the ER. Unfortunately flight is not available, and local transportation services are not available under the esmolol drip. We discussed this with cardiothoracic and it is felt that transition to Cardizem drip will be ideal patient will be transitioned to this, and transferred via [facility]. I have extensively reviewed the treatment plan and discharge instructions with the patient. I have addressed all patient concerns at this time. The patient was made aware of what symptoms to monitor for that would warrant a return to the emergency department. Discussed the plan with the patient, they demonstrate verbal understanding and agreement with our assessment and plan at this time. The documentation in this chart was dictated using [employer] dictation software. Please excuse any dictation errors. At time of transfer patient demonstrates notable improvement of her pain as her blood pressure has been been decreased to 110 systolic, and heart rate is now in the 70s. Diltiazem drip is currently at 10 mg she has also been given a notable amount of Dilaudid morphine and Ativan to help. Patient demonstrates no mental status changes, no indication for intubation at this time FINDINGS: Pulmonary arteries: Not opacified limiting evaluation. Aorta: There continues to be an abnormal linear filling defect within the ascending thoracic aorta which has not significantly changed configuration from the earlier study but is difficult to completely distinguish from linear bands of motion artifact at the same level. Notably there is interval change in the appearance of the right brachiocephalic artery which now has a cuff of relative hypodensity surrounding the central opacified lumen. The remainder of the thoracic aorta is unremarkable. Lungs: No consolidation, mass or suspicious pulmonary nodule. Pleural spaces: No pneumothorax. No pleural effusion. Heart: No pericardial effusion. Lymph nodes: No mediastinal, hilar or axillary adenopathy. Bones/joints: No significant bony or joint space abnormality. Soft tissues: Extrathoracic soft tissues are unremarkable. IMPRESSION: 1. Aortic dissection cannot be excluded based on the CT findings and if there is still a clinical concern recommend follow-up cardiac gated MRA of the aorta and/or aortic echocardiography for further evaluation. 2. THIS REPORT CONTAINS FINDINGS THAT MAY BE CRITICAL TO PATIENT CARE. The findings were verbally communicated via telephone conference with CHACHO THOMAS at 3:41 AM EDT on 06/13/2020. The findings were acknowledged and understood. Thank you for allowing us to participate in the care of your patient. Dictated and Authenticated by: Arsenio Yoder MD 06/13/2020 3:42 AM Eastern Time ([place] & [place]) FINDINGS: Pulmonary arteries: Pulmonary arteries not well opacified. There is no gross central filling defect. Aorta:Great vessels off aortic arch: There is a vertically oriented linear filling defect within the right posterolateral aspect of the ascending thoracic aorta which is seen in 3 planes and consistent with an aortic dissection. The dissection begins just above the aortic root. It involves the right lateral aspect of the brachialcephalic artery and the proximal most aspect of the right subclavian artery. There is no definite involvement of the common carotid arteries, left sharing a common trunk with the brachiocephalic artery. Lungs: There is no consolidation or ground-glass disease. The central airways are patent. Pleural spaces: No pleural effusion or pneumothorax. Heart: No pericardial effusion/hemopericardium. Lymph nodes: No mediastinal, hilar or axillary adenopathy. Mediastinum: No hemomediastinum. Bones/joints: No significant bony or joint space abnormality. Soft tissues: Extrathoracic soft tissues are unremarkable. IMPRESSION: 1. [place] type A/[place] type II aortic dissection. 2. THIS REPORT CONTAINS FINDINGS THAT MAY BE CRITICAL TO PATIENT CARE. The findings were verbally communicated via telephone conference with CHACHO THOMAS at 1:42 AM EDT on 06/13/2020. The findings were acknowledged and understood. Thank you for allowing us to participate in the care of your patient. Dictated and Authenticated by: Arsenio Yoder MD FINDINGS: ANTERIOR CIRCULATION: Right internal carotid artery: Intracranial segment is patent with no significant stenosis. No aneurysm. Right middle cerebral artery: No occlusion or significant stenosis. No aneurysm. Right anterior cerebral artery: No occlusion or significant stenosis. No aneurysm. Left internal carotid artery: Intracranial segment is patent with no significant stenosis. No aneurysm. Left middle cerebral artery: No occlusion or significant stenosis. No aneurysm. Left anterior cerebral artery: No occlusion or significant stenosis. No aneurysm. POSTERIOR CIRCULATION: Right vertebral artery: No occlusion or significant stenosis. No aneurysm. Left vertebral artery: No occlusion or significant stenosis. No aneurysm. Basilar artery: No occlusion or significant stenosis. No aneurysm. Right posterior cerebral artery: No occlusion or significant stenosis. No aneurysm. Left posterior cerebral artery: No occlusion or significant stenosis. No aneurysm. Brain: No definite mass, mass effect, or midline shift. Cerebral ventricles: No ventriculomegaly. Bones/joints: Unremarkable. No acute fracture. Soft tissues: Unremarkable. IMPRESSION: No large vessel stenosis or occlusion FINDINGS: Right common carotid artery: No stenosis. No dissection or occlusion. Right internal carotid artery: Calcified plaque at the bulb with mild stenosis. No dissection or occlusion. Right external carotid artery: No occlusion or stenosis of the origin. Right vertebral artery: No stenosis. No dissection or occlusion. Left common carotid artery: No stenosis. No dissection or occlusion. Left internal carotid artery: Moderate stenosis at the bulb. No dissection or occlusion. Left external carotid artery: No occlusion or stenosis of the origin. Left vertebral artery: No stenosis. No dissection or occlusion. Bones/joints: No acute fracture. Soft tissues: Normal. No significant soft tissue swelling. IMPRESSION: No large vessel occlusion Moderate left and mild right carotid stenoses Patent vertebral arteries Thank you for allowing us to participate in the care of your patient. Dictated and Authenticated by: Dejan Argueta MD 06/13/2020 12:55 AM Eastern Time ([place] & [place]) HPI General Date/Time Provider Initiated Documentation: 06/12/20 23:00. HPI Narrative: This is a 54-year-old female with a past medical history of depression, hypertension, anxiety, everyday smoker, who presents today for right neck shoulder and arm pain. Pain has been present for the last 6 days. Patient states that it came on suddenly without any particular aggravating factor. The pain is described as sharp, achy, pain found in her right neck and shoulder and upper chest. Currently she states that the pain feels like her arm and shoulder are breaking. She admits to numbness in her right arm intermittently that seems to come and go every few minutes. She denies any falls, trauma, fever or chills. She denies any IV or illicit drug use. Of note historically the patient was originally seen here on 06/07 where she had negative cervical spine x-rays, she was diagnosed with cervical radiculopathy and rhomboid muscle pain. She was started on NSAIDs, muscle relaxants and steroids. Patient had no improvement of her symptoms with this. She had only mild improvement when she would take Tylenol, but no improvement of significance with the other medications. During the early course of the pain she would have mild improvement with heat and the prednisone but this was only for 1 day. She came in again earlier this evening where she had some lab work performed, all of which was relatively unremarkable. Salicylate and acetaminophen levels were unremarkable. Liver function stable. She was discharged home and then came back moments later with severe worsening of her right arm neck and shoulder pain. Again she currently describes it as feeling like all the bones are breaking in conjunction with numbness in the right arm, and a burning sensation. Patient denies any previous cardiac history. No other complaints at this time. Related Data Home Medications Medication Instructions Recorded Confirmed dextroamphetamine-amphetamine 20 mg PO DAILY 06/07/20 06/12/20 [Adderall XR] dextroamphetamine-amphetamine 20 mg PO BID 06/07/20 06/12/20 [Adderall] lamotrigine [Lamictal] 150 mg PO BID 06/07/20 06/12/20 lisinopril 5 mg PO DAILY 06/07/20 06/12/20 lorazepam 1.5 mg PO DAILY PRN 06/07/20 06/12/20 pantoprazole 20 mg PO DAILY 06/07/20 06/12/20 gabapentin 200 mg PO TID 7 Days #40 cap 06/12/20 06/12/20 Previous Rx's Medication Instructions Recorded gabapentin 200 mg PO TID 7 Days #40 cap 06/12/20 Allergies Allergy/AdvReac Type Severity Reaction Status Date / Time No Known Allergies Allergy Unverified 06/12/20 18:51 General Stated Complaint: Nk/Back Pain EDER: 4 Review of Systems All systems reviewed & are unremarkable except as noted in HPI and below PFSH Medical History Depression Hypertension Surgical History History of section History of tonsillectomy Social History Smoking/Tobacco Use Status: Current every day Tobacco Type: e-cigarettes Tobacco: How many years used: 2 Smoking risk assessment performed?: Yes Alcohol Intake: current Alcohol Intake frequency: a few times a month Alcohol type: wine Drug use: Rarely Substance use type: marijuana Do you feel safe at home: Yes Do you feel safe in your relationship?: Yes Exam Narrative Exam Narrative: 1.Const: Well-nourished, Well-developed, appearing stated age, appears to have notable distress secondary to pain in the right arm and shoulder 2.Eyes: PERRL, no conjunctival injection, and symmetrical lids. 3.ENT: Atraumatic external nose and ears. Moist MM. Neck: Symmetric, trachea midline, No thyromegaly. 4.CVS: +S1/S2, No murmurs or gallops. Peripheral pulses 2+ and equal in all extremities. Brisk capillary refill in all extremities. Radial pulses +2 bilaterally equal and equivalent. 5.RESP: Unlabored respiratory effort. Clear to auscultation bilaterally. No wheezes rales or rhonchi 6.GI: Soft, Nontender/Nondistended, No hepatosplenomegaly. No guarding or rebound. 7.MSK: Normocephalic/Atraumatic, Extremities w/o deformity or ttp No cyanosis or clubbing, Normal movement of all extremities. Patient's right arm demonstrates brisk capillary refill in all fingertips less than 2 seconds, this is identical to the right arm. Temperature of all arms appears equal. Sensation appears to be diminished on the right arm. She has intact sensation throughout however mild diminishment of sensation over the area of C6-C7-C8 and T1. Hot and cold sensation appropriate and intact. Patient demonstrates good range of motion for the right upper extremity. No focal bony tenderness, however she does have just severe diffuse tenderness throughout the right upper extremity in the shoulder and the humerus. No midline cervical thoracic or lumbar spine tenderness. No bruits. Pressure down on the patient's head/neck mildly does relieve a small component of the symptoms. 8.Skin: Warm, Dry. No rashes or lesions. 9.Neuro: online content developer II-XII grossly intact. Please see musculoskeletal 10.Psych: (AAO) x3. Notably anxious, pacing the room holding her right arm and shoulder. Course Vital Signs Vital signs: Vital Signs Temperature 36.4 C L 06/12/20 23:06 Pulse 93 H 06/12/20 23:06 Respiratory Rate 16 06/12/20 23:06 Blood Pressure 146/97 H 06/12/20 23:06 Pulse Oximetry 100 06/12/20 23:06 Temperature 36.4 C L 06/12/20 23:06 Temperature Source Skin 06/12/20 23:06 Pulse 93 H 06/12/20 23:06 Respiratory Rate 16 06/12/20 23:06 Respiratory Effort 06/12/20 23:11 Blood Pressure 146/97 H 06/12/20 23:06 Blood Pressure Position Supine 06/12/20 23:06 Pulse Oximetry 100 06/12/20 23:06 Oxygen Delivery Method Room Air 06/12/20 23:06 Oxygen Flow Rate 0 06/12/20 23:06 Pain Level 10 06/12/20 23:06 Lab/Test Results Lab/Test Results: Laboratory Tests Range/Units 06/12/20 23:52 Troponin I (<0.06) ng/mL < 0.05 Critical Care Time Critical Care Time Critical Care Time: Yes Total Critical Care Time: 90 Attestation: upon my evaluation, this patient had a high probability of imminent or life-threatening deterioration, which required my direct attention, intervention, and personal management. I have personally provided 90 minutes of critical care time exclusive of time spent on separately billable procedures. Time includes review of laboratory data, radiology results, discussion with consultants, and monitoring for potential decompensation. Interventions were performed as documented.
--- NOTE | 2020-06-13 01:42 | DI.VRAD_ITS ---
PROCEDURE INFORMATION: Exam: CTA Chest With Contrast Exam date and time: 06/12/2020 11:33 PM Age: 54 years old Clinical indication: Other: Right shoulder and arm chest and neck pain severe; Additional info: Severe right arm, neck, shoulder pain, right shoulder and armchest and neck pain severe TECHNIQUE: Imaging protocol: Computed tomographic angiography of the chest with contrast. 3D rendering (Not supervised by radiologist): MIP and/or 3D reconstructed images were created by the technologist. Total images: 1525 Radiation optimization: All CT scans at this facility use at least one of these dose optimization techniques: automated exposure control; mA and/or kV adjustment per patient size (includes targeted exams where dose is matched to clinical indication); or iterative reconstruction. Contrast material: VISIPAQUE 320; Contrast volume: 65 ml; Contrast route: INTRAVENOUS (IV); COMPARISON: CR XR CHEST 1V IN DI DEPT 06/07/2020 12:22 PM FINDINGS: Pulmonary arteries: Pulmonary arteries not well opacified. There is no gross central filling defect. Aorta:Great vessels off aortic arch: There is a vertically oriented linear filling defect within the right posterolateral aspect of the ascending thoracic aorta which is seen in 3 planes and consistent with an aortic dissection. The dissection begins just above the aortic root. It involves the right lateral aspect of the brachialcephalic artery and the proximal most aspect of the right subclavian artery. There is no definite involvement of the common carotid arteries, left sharing a common trunk with the brachiocephalic artery. Lungs: There is no consolidation or ground-glass disease. The central airways are patent. Pleural spaces: No pleural effusion or pneumothorax. Heart: No pericardial effusion/hemopericardium. Lymph nodes: No mediastinal, hilar or axillary adenopathy. Mediastinum: No hemomediastinum. Bones/joints: No significant bony or joint space abnormality. Soft tissues: Extrathoracic soft tissues are unremarkable. IMPRESSION: 1. [place] type A/DeBake[place] type II aortic dissection. 2. THIS REPORT CONTAINS FINDINGS THAT MAY BE CRITICAL TO PATIENT CARE. The findings were verbally communicated via telephone conference with MEENU THOMAS at 1:42 AM EDT on 06/13/2020. The findings were acknowledged and understood. Dictated and Authenticated by: Arsenio Yoder MD. Ordering:ELIZABETH Flor MD
[2020-06-13] MEDS: Lidocaine/Epinephri/Tetracaine Topical Gel 3 ML (01:58)
[2020-06-13] MEDS: LORazepam 2 MG/ML VIAL 0.5 MG IVP (01:58)
--- NOTE | 2020-06-13 02:00 | DI.CT_ITS ---
EXAM: CT THORAX CTA CLINICAL HISTORY: eval for dissection vs motion artifact. TECHNIQUE: Imaging Protocol: CT angiography of the chest was performed using pulmonary embolus amira col. Multi planar reconstructions were performed. CONTRAST MATERIAL: Intravenous: Omnipaque 350 Contrast volume: 100 cc COMPARISON: CT CT THORAX CTA from 06/13/2020 FINDINGS: CHEST: THORACIC AORTA: There appears to be redemonstration suspicion for aortic dissection in the ascending thoracic aorta as previously described.Probable involvement of the brachiocephalic artery is noted wh ich exhibits a surrounding cuff of relative hypodensity compared to the central opacified lumen. The re is no extension into the origin of the right common carotid artery nor into the left common caroti d artery which appears to share a common trunk. No evidence of dissection flap in the aortic arch di stal to the brachiocephalic nor in the descending thoracic aorta (which exhibits upper normal diamete r. Visualized upper aspect of the abdominal aorta is with no intimal flap. . CARDIAC: Heart size is upper normal. There is no pericardial effusion. LUNGS: There are no infiltrates, masses, or pleural effusions. MEDIASTINUM: No hilar nor mediastinal adenopathy. VISUALIZED UPPER ABDOMEN: The aorta appears unremarkable at this level. IMPRESSION: 1. Redemonstration of suspicion for [place] type A aortic dissection. 2. There is no pericardial effusion/hemopericardium. 3. Lungs are clear and there are no pleural effusions. RADIATION DOSE DELIVERED: 319.23mGy.cm Total DLP DATA REPOSITORY: All CT scans at this facility are submitted to the National Radiology Data Registry (NRDR) Dose Index Registry (DIR) with the [employer] (ACR). RADIATION OPTIMIZATION: All CT scans at this facility use at least one of these dose optimization te chniques: automated exposure control; mA and/or kV adjustment per patient size (includes targeted exa ms where dose is matched to clinical indication); or iterative reconstruction.
[2020-06-13] MEDS: LORazepam 2 MG/ML VIAL 1 MG IVP (02:15)
[2020-06-13] MEDS: HYDROmorphone 2 MG/ML VIAL 1 MG IVP (02:15)
[2020-06-13] MEDS: Esmolol 100 MG/10 ML VIAL 27 MG IVP (02:32)
[2020-06-13 02:41] LABS: D-Dimer 204 ng/mlFEU (<500)
[2020-06-13] MEDS: ESMOLOL 2,500 MG/250 ML BAG 16.329 MG IV (02:59)
--- NOTE | 2020-06-13 03:42 | DI.VRAD_ITS ---
PROCEDURE INFORMATION: Exam: CTA Chest With Contrast Exam date and time: 06/13/2020 2:08 AM Age: 54 years old Clinical indication: Abnormal findings; Other: Aortic dissection; Patient HX: Eval for dissection vs motion artifact on prior cta chest exam as requested per [facility] TECHNIQUE: Imaging protocol: Computed tomographic angiography of the chest with contrast. 3D rendering (Not supervised by radiologist): MIP and/or 3D reconstructed images were created by the technologist. Total images: 1444 Radiation optimization: All CT scans at this facility use at least one of these dose optimization techniques: automated exposure control; mA and/or kV adjustment per patient size (includes targeted exams where dose is matched to clinical indication); or iterative reconstruction. Contrast material: VISIPAQUE 320; Contrast volume: 60 ml; Contrast route: INTRAVENOUS (IV); COMPARISON: CT THORAX CTA 06/13/2020 12:30 AM FINDINGS: Pulmonary arteries: Not opacified limiting evaluation. Aorta: There continues to be an abnormal linear filling defect within the ascending thoracic aorta which has not significantly changed configuration from the earlier study but is difficult to completely distinguish from linear bands of motion artifact at the same level. Notably there is interval change in the appearance of the right brachiocephalic artery which now has a cuff of relative hypodensity surrounding the central opacified lumen. The remainder of the thoracic aorta is unremarkable. Lungs: No consolidation, mass or suspicious pulmonary nodule. Pleural spaces: No pneumothorax. No pleural effusion. Heart: No pericardial effusion. Lymph nodes: No mediastinal, hilar or axillary adenopathy. Bones/joints: No significant bony or joint space abnormality. Soft tissues: Extrathoracic soft tissues are unremarkable. IMPRESSION: 1. Aortic dissection cannot be excluded based on the CT findings and if there is still a clinical concern recommend follow-up cardiac gated MRA of the aorta and/or aortic echocardiography for further evaluation. 2. THIS REPORT CONTAINS FINDINGS THAT MAY BE CRITICAL TO PATIENT CARE. The findings were verbally communicated via telephone conference with MEENU THOMAS at 3:41 AM EDT on 06/13/2020. The findings were acknowledged and understood. Dictated and Authenticated by: Arsenio Yoder MD. Ordering:ELIZABETH Flor MD
[2020-06-13] MEDS: dilTIAZem 125 MG in Normal Saline 100 ML IV (04:38)
[2020-06-13] MEDS: dilTIAZem 25 MG/5 ML VIAL 10 MG IVP (05:22)
[2020-06-13 05:28] LABS: COVID-19 PCR Negative (Negative)
== END 2020-06-13 05:38 | disposition home or self-care (01) ==
PROVIDERS: Emergency Provider Student in an Organized Health Care Education/Training Program
DX: I71.01 Dissection of thoracic aorta (principal); M25.511 Pain in right shoulder
CPT/HCPCS: 70496; 70498; 71275; 87635; 93005; 96365; 96366; 96374; 96375; 96376; 99291; 99292; 84484; 85379; 93010; J2060; Q9967

== ENCOUNTER 2020-06-19 09:47 | Outpatient (CLI) | payer MEDICAID, SELFPAY ==
--- NOTE | 2020-06-19 12:15 | DI.MRI_ITS ---
EXAM: MR CERVICAL SPINE WO CLINICAL HISTORY: RT CERVICAL RADICULOPATHY, M54.12 TECHNIQUE: Multiplanar multisequence MRI of the cervical spine was performed without intravenous con trast. COMPARISON: CR XR CERVICAL SPINE COMP 4-5V from 06/07/[address] BRAIN NECK CTA from 06/13/[address] BRAIN NECK CTA from 06/13/[address] THORAX CTA from 06/13/2020 FINDINGS: BONES: Vertebral body heights are maintained. Intervertebral disc spaces are normal. Alignment is nor mal. Bone marrow signal intensity is within normal limits. CERVICAL CORD: Craniovertebral junction is unremarkable. The cervical cord is normal size and signal intensity. SOFT TISSUES: Unremarkable. C2-3: No disc herniation or bulge is identified. No significant central spinal canal or neural forami nal stenosis. C3-4: No disc herniation or bulge is identified. No significant central spinal canal or right neural foraminal stenosis. There is prominence of the left uncovertebral joint causing mild left neural for aminal stenosis. C4-5: No disc herniation or bulge is identified. No significant central spinal canal or left neural f oraminal stenosis. There are hypertrophic changes of the right uncovertebral joint. There is mild-t o-moderate narrowing of the right neural foramen. C5-6: There is prominence of the osteophyte disc complex. There is mild effacement of the anterior s ubarachnoid space. There is mild narrowing of the central spinal canal. Degenerative changes are se en of the left uncovertebral joint. There is mild left neural foraminal narrowing. No significant r ight neural foraminal stenosis is seen. C6-7: No disc herniation or bulge is identified. No significant central spinal canal or neural forami nal stenosis C7-T1: No disc herniation or bulge is identified. No significant central spinal canal or neural avelina inal stenosis IMPRESSION: Multilevel degenerative changes in the cervical spine as described above. The findings are most john ed from C3-4 through C5-C6. Please see the above discussion for complete details. DATA REPOSITORY:
--- OUTSIDE RECORDS SUMMARY | 2020-06-20 09:50 | XMS_ITS | Continuity of Care Document ---
:1965 Author Organization [facility] Address [address] [place] [phone]- Care Team Providers Name Role Phone Roel DEVINE Primary Care Physician Encounter BVT Date(s): 03/20/20 - 03/20/[address] [id number]- Discharge Disposition: Left without being seen Allergies, Adverse Reactions, Alerts No Known Allergies Assessment and Plan Future Appointments Functional Status 03/20/20 Recent Travel History No recent travel Family Member Travel History No recent travel COVID-19 Screening None Immunizations Given and Recorded Vaccine Date Status Refusal Reason influenza, inactivated 01/21/20 Recorded influenza, inactivated 12/14/17 Recorded influenza, inactivated 12/27/16 Recorded influenza, inactivated 10/29/13 Recorded Td 12/13/12 Recorded Medications Adderall XR 20 mg, Oral, BID, 1 Qam & 1 Qpm, 0 Refill(s) Start Date: 01/23/17 Status: OrderedLaMICtal 150 mg, Oral, BID, 0 Refill(s) Start Date: 10/21/16 Status: Orderedlisinopril 10 mg oral tablet = 1 tab(s), Oral, Daily, # 90 tab(s), 3 Refill(s), [id number], 1 tab(s) Oral Daily Start Date: 01/18/20 Status: OrderedLORazepam 1 mg oral tablet 1.5 mg = 1.5 tab(s), Oral, BID, PRN PRN Anxiety, 0 Refill(s) Start Date: 08/11/17 Status: Orderedpantoprazole 40 mg oral delayed release tablet See Instructions, TAKE 1 TABLET BY MOUTH ONCE DAILY, # 90 tab(s), Refill(s) 3, [facility] #[id number] Start Date: 02/25/19 Status: OrderedtraZODone 50 mg oral tablet 150 mg = 3 tab(s), Oral, Once a day (at bedtime), PRN PRN Sleep, # 270 tab(s), 5 Refill(s), Pharmacy: [facility][id number], 3 tab(s) Oral Once a day (at bedtime),PRN:Sleep Start Date: 10/08/18 Status: Ordered Mental Status 03/20/20 Level of Consciousness Alert Problem List Condition Effective Dates Status Health Status Informant Bipolar disorder(Confirmed) Active Hypertension, essential(Confirmed) 07/21/13 Active GERD (gastroesophageal reflux Active disease)(Confirmed)1 Insomnia, unspecified(Confirmed) 06/07/15 Active Pure hyperglyceridemia(Confirmed) 07/23/16 Active De Quervain's tenosynovitis, Active left(Confirmed) 1EGD with esophagitis 02/07 Procedures Procedure Date Related Diagnosis Body Site Status Colonoscopy1 01/2016 Completed Esophagogastroduodenoscopy2 01/2016 Completed MICHA - Total abdominal hysterectomy3 08/16/13 Completed Breast biopsy sample4 2009 Comple daphne section5 Completed Tubal ligation Completed 1neg other [id number] area of esophagitis, +HH3B- Dr. Turk, [id number] u/s guided, [id number] Vital Signs Most recent to oldest [Reference Range]: 1 Respiratory Rate [14-20 br/min] 16 br/min (03/20/20 7:21 AM) SpO2 [92-100 %] 98 % (03/20/20 7:21 AM) Height/Length Estimated 167.000 cm (03/20/20 7:21 AM) Height/Length Dosing 167.000 cm (03/20/20 7:25 AM) Weight Estimated 60.000 kg (03/20/20 7:21 AM) Weight Dosing 60.000 kg (03/20/20 7:25 AM) Social History Social History Type Response Smoking Status Never (less than 100 in life time) entered on: 09/14/19 Sex
--- OUTSIDE RECORDS SUMMARY | 2020-06-20 09:50 | XMS_ITS | Continuity of Care Document ---
:1965 Author Organization [facility] Address [address] [place] [id number] Care Team Providers Name Role Phone Roel DEVINE Primary Care Physician Encounter BVT Date(s): 09/14/19 - 09/14/19 [facility] [address] [place] [address] [place] [address] Encounter Diagnosis Easy bruising (Discharge Diagnosis) - 09/14/19 Syncope (Discharge Diagnosis) - 09/14/19 Bipolar disorder (Discharge Diagnosis) - 09/14/19 Discharge Disposition: Home Attending Physician: PAOLO DEVINE Allergies, Adverse Reactions, Alerts No Known Allergies Assessment and Plan Extracted from: Title: Office Visit Note- BIM (easy bruising, Author: PAOLO DEVINE Date: 09/14/19 syncope, bipolar, anxiety) 1.??Easy bruising??R23.8 ??as well as gum bleeding- check CBC, P T, PTT, and CMP. Is not on NSAIDs 2.??Syncope??R55 ??Likely due to vasovagal with abd cram ps and nausea. Observe for now. 3.??Bipolar disorder??F31.9 ??In crisis, with what sounds like [place]ia denson. Sees Dr. Kiser. Strongly encouraged her to try therapy again. She will consider. 4. Epigastric pain: no pattern other t scherer that it is worse when she is at home alone, and better when outside and busy. Likely stress. Is already on a PPI. RTC if worsens. ?? > 50% of this??52 minute visit was louie daphne to counselling, therapeutic planning and coordination of care re: above medical problems ?? f/u 3 months (will call her with lab results) Annual wellness visit in 6 months. Future AppointmentsFuture Scheduled TestsRadiologyMA Mammogram Digital Screening 10/08/18 Functional Status 09/14/19 Recent Travel History No recent travel Family Member Travel History No recent travel COVID-19 Screening None Immunizations Given and Recorded Vaccine Date Status Refusal Reason influenza, inactivated 12/14/17 Recorded influenza, inactivated 12/27/16 Recorded influenza, inactivated 10/29/13 Recorded Td 12/13/12 Recorded Medications Adderall XR 20 mg, Oral, BID, 1 Qam & 1 Qpm, 0 Refill(s) Start Date: 01/23/17 Status: OrderedLaMICtal 150 mg, Oral, BID, 0 Refill(s) Start Date: 10/21/16 Status: Orderedlisinopril 10 mg oral tablet 1 tab(s), Oral, Daily, # 90 tab(s), Refill(s) 1, [facility] #[id number] Start Date: 05/24/19 Status: OrderedLORazepam 1 mg oral tablet 1.5 mg = 1.5 tab(s), Oral, BID, PRN PRN Anxiety, 0 Refill(s) Start Date: 08/11/17 Status: Orderedpantoprazole 40 mg oral delayed release tablet See Instructions, TAKE 1 TABLET BY MOUTH ONCE DAILY, # 90 tab(s), Refill(s) 3, [facility] #[id number] Start Date: 02/25/19 Status: OrderedtraZODone 50 mg oral tablet 150 mg = 3 tab(s), Oral, Once a day (at bedtime), PRN PRN Sleep, # 270 tab(s), 5 Refill(s), Pharmacy: [facility] #[id number], 3 tab(s) Oral Once a day (at bedtime),PRN:Sleep Start Date: 10/08/18 Status: Ordered Problem List Condition Effective Dates Status Health Status Informant Bipolar disorder(Confirmed) Active Hypertension, essential(Confirmed) 07/21/13 Active GERD (gastroesophageal reflux Active disease)(Confirmed)1 Insomnia, unspecified(Confirmed) 06/07/15 Active Pure hyperglyceridemia(Confirmed) 5/31/17 Active De Quervain's tenosynovitis, Active left(Confirmed) 1EGD with esophagitis 02/07 Procedures Procedure Date Related Diagnosis Body Site Status Colonoscopy1 01/2016 Completed Esophagogastroduodenoscopy2 01/2016 Completed MICHA - Total abdominal hysterectomy3 08/16/13 Completed Breast biopsy sample4 2009 Comple daphne section5 Completed Tubal ligation Completed 1neg other ikrznnxsgpqayj5ucvlo area of esophagitis, +HH3BMH- Dr. Turk, wyghpkcvctv2smef u/s guided, vdqgel5b2 Vital Signs Most recent to oldest [Reference Range]: 1 Temperature Temporal Artery [36.3-37.8 DegC] 36.6 DegC (09/14/19 1:18 PM) Peripheral Pulse Rate [60-100 bpm] 103 bpm *HI* (09/14/19 1:18 PM) Respiratory Rate [14-20 br/min] 18 br/min (09/14/19 1:18 PM) Blood Pressure [90-140/60-90 mmHg] 116/74 mmHg (09/14/19 1:18 PM) BP Site Left arm (09/14/19 1:18 PM) Pulse Site Pulse Oximetry (09/14/19 1:18 PM) SpO2 [92-100 %] 99 % (09/14/19 1:18 PM) Weight 60.3 kg (09/14/19 1:18 PM) Weight Measured (lbs) 132.66 lb (09/14/19 1:18 PM) Social History Social History Type Response Smoking Status Never (less than 100 in life time) entered on: 09/14/19 Sex
--- OUTSIDE RECORDS SUMMARY | 2020-06-20 09:50 | XMS_ITS | Continuity of Care Document ---
:1965 Author Organization [facility] Address [address] [place] [phone]- Care Team Providers Name Role Phone Roel DEVINE Primary Care Physician Encounter BVT [facility] [id number] Date(s): 09/14/19 - 09/14/[address] [address]- Discharge Disposition: Home Attending Physician: PAOLO DEVINE Admitting Physician: PAOLO DEVINE Allergies, Adverse Reactions, Alerts No Known Allergies Assessment and Plan Future AppointmentsFuture Scheduled TestsRadiologyMA Mammogram Digital Screening 10/08/18 Immunizations Given and Recorded Vaccine Date Status [...] Oral, Daily, # 90 tab(s), [facility](s) [id number] Start Date: 05/24/19 Status: OrderedLORazepam 1 mg oral tablet 1.5 mg = 1.5 tab(s), Oral, BID, PRN PRN Anxiety, 0 Refill(s) Start Date: 08/11/17 Status: Orderedpantoprazole 40 mg oral delayed release tablet See Instructions, TAKE 1 TABLET BY MOUTH ONCE DAILY, # 90 tab(s), Refill(s) 3, [facility] #[id number] Start Date: 02/25/19 Status: OrderedtraZODone 50 mg oral tablet 150 mg = 3 tab(s), Oral, Once a day (at bedtime), PRN PRN Sleep, # 270 tab(s), 5 Refill(s), [facility]: [id number], 3 tab(s) Oral Once a day (at [...] section5 Completed Tubal ligation Completed 1neg other ahubavhtembvlw4irbbz area of esophagitis, +HH3B- Dr. Turk, [id number] u/s guided, [id number] Results Laboratory List Name Date APTT 09/14/19 Automated Differential Standard 09/14/19 CBC w/Diff Standard 09/14/19 Comprehensive Metabolic Panel Standard (CMP Standard) 09/14/19 PT (PT/INR) 09/14/19 Most recent to oldest [Reference Range]: 1 Activated PTT [26.0-40.0 second(s)] 26.0 second(s) (09/14/19 2:56 PM) NRBC Auto Pct [0.00-0.20 %] 0.00 % (09/14/19 2:56 PM) Creatinine [0.50-0.90 mg/dL] 0.67 mg/dL (09/14/19 2:56 PM) INR 0.97 *NA* (09/14/19 2:56 PM) AGAP [10.0-18.0 mmol/L] 15.7 mmol/L (09/14/19 2:56 PM) Glucose Lvl [70-100 mg/dL] 94 mg/dL (09/14/19 2:56 PM) Hct [34.1-44.9 %] 37.3 % (09/14/19 2:56 PM) Hgb [11.5-15.7 gm/dL] 12.5 gm/dL (09/14/19 2:56 PM) Lymph Auto [15.0-45.0 %] 40.1 % (09/14/19 2:56 PM) MCH [25.6-32.2 pg] 29.2 pg (09/14/19 2:56 PM) MCHC [32.3-36.5 gm/dL] 33.5 gm/dL (09/14/19 2:56 PM) MCV [79.4-94.8 fL] 87.1 fL (09/14/19 2:56 PM) [place] Auto [4.0-14.0 %] 9.3 % (09/14/19 2:56 PM) MPV [9.4-12.4 fL] 9.8 fL (09/14/19 2:56 PM) Neutro Auto [50.0-75.0 %] 47.2 % *LOW* (09/14/19 2:56 PM) Osmolality [268.0-291.0 mOsm/kg] 284.1 mOsm/kg (09/14/19 2:56 PM) Platelet [150-400 x10(3)/uL] 295 x10(3)/uL (09/14/19 2:56 PM) PT [11.0-14.5 second(s)] 13.0 second(s) (09/14/19 2:56 PM) RBC [3.93-5.22 x10(6)/uL] 4.28 x10(6)/uL (09/14/19 2:56 PM) Sodium Lvl [136-145 mmol/L] 142 mmol/L (09/14/19 2:56 PM) Total Protein [6.6-8.7 gm/dL] 7.0 gm/dL (09/14/19 2:56 PM) Albumin Lvl [3.50-5.20 gm/dL] 4.50 gm/dL (09/14/19 2:56 PM) Alk Phos [35-105 IntUnit/L] 53 IntUnit/L (09/14/19 2:56 PM) ALT [0-33 IntUnit/L] 12 IntUnit/L (09/14/19 2:56 PM) AST [0-32 IntUnit/L] 16 IntUnit/L (09/14/19 2:56 PM) Basophil Auto [0.0-2.0 %] 0.6 % (09/14/19 2:56 PM) Bili Total [0.0-1.3 mg/dL] 0.3 mg/dL (09/14/19 2:56 PM) CO2 [22-29 mmol/L] 28 mmol/L (09/14/19 2:56 PM) Eos Auto [0.0-8.0 %] 2.6 % (09/14/19 2:56 PM) WBC [4.0-10.0 x10(3)/uL] 4.6 x10(3)/uL (09/14/19 2:56 PM) BUN [6-23 mg/dL] 16 mg/dL (09/14/19 2:56 PM) Calcium Lvl [8.6-10.2 mg/dL] 9.3 mg/dL (09/14/19 2:56 PM) Chloride [98-107 mmol/L] 102 mmol/L (09/14/19 2:56 PM) Potassium Lvl [3.5-5.1 mmol/L] 3.7 mmol/L (09/14/19 2:56 PM) Lymph Absolute [1.20-3.70 x10(3)/uL] 1.86 x10(3)/uL (09/14/19 2:56 PM) [place] Absolute [0.20-0.40 x10(3)/uL] 0.43 x10(3)/uL *HI* (09/14/19 2:56 PM) Eos Absolute [0.04-0.54 x10(3)/uL] 0.12 x10(3)/uL (09/14/19 2:56 PM) NRBC Absolute [0.00-0.01 x10(3)/uL] 0.00 x10(3)/uL (09/14/19 2:56 PM) Neutro Absolute [1.56-6.13 x10(3)/uL] 2.19 x10(3)/uL (09/14/19 2:56 PM) RDW-CV [11.7-14.4 %] 12.3 % (09/14/19 2:56 PM) GFR >60 mL/min/1.73 m2 *NA* (09/14/19 2:56 PM) GFR NonAfrican [place] >60 mL/min/1.73 m2 *NA* (09/14/19 2:56 PM) Immature Gran % [0.00-2.30 %] 0.20 % (09/14/19 2:56 PM) Immature Gran Absolute 0.01 x10(3)/uL *NA* (09/14/19 2:56 PM) Basophil Absolute [0.00-0.10 x10(3)/uL] 0.03 x10(3)/uL (09/14/19 2:56 PM) Social History Social History Type Response Smoking Status Never (less than 100 in life time) entered on: 09/14/19 Sex
== END 2020-06-19 10:07 ==
PROVIDERS: Visit Provider Physician Assistant
DX: M54.12 Radiculopathy, cervical region (principal); M50.31 Other cervical disc degeneration, high cervical region; M50.322 Other cervical disc degeneration at C5-C6 level
CPT/HCPCS: 72141

== ENCOUNTER 2020-07-06 17:30 | Outpatient (REF) | payer MEDICAID, SELFPAY ==
[2020-07-09 15:33] LABS: Chlamydia Result Negative (Negative); GC Result Negative (Negative)
== END 2020-07-06 17:31 | disposition home or self-care (01) ==
LOC: LBN 17:30
PROVIDERS: Visit Provider Physician Assistant Medical
DX: N72 Inflammatory disease of cervix uteri (principal); Z11.3 Encounter for screening for infections with a predominantly sexual mode of transmission
CPT/HCPCS: 87491; 87591; 87480; 87510; 87660

== ENCOUNTER 2020-08-02 12:12 | Emergency (ER) | payer MEDICAID, SELFPAY ==
[2020-08-02] VITALS (18 sets, daily range): BP systolic 110–146; BP diastolic 71–91; PULSE 89–110; RESP 15–24; TEMP 36.1–36.4; O2SAT 97–99
--- NOTE | 2020-08-02 12:15 | RT.EKG_ITS ---
APPROVED REPORT Exam: Resting ECG Reason for Exam: possible overdose Patient Location: E HR:109 bpm ECG Measurements Heart Rate 109 AXIS OR 162 P 67 QRSd 83 QRS 58 QT 333 T 61 QTc 448 Conclusion Sinus tachycardia...rate> 99 Probable left atrial enlargement...P >50mS, <-0.10mV V1
--- NOTE | 2020-08-02 12:52 | ED.GENADUL_ITS ---
Discharge Plan Disposition Patient Disposition: HOME Condition: Good Discharge Details Clinical Impression: Accidental overdose Primary Care Provider: Unknown,Unknown ED Provider: Gabby Leal Home Meds and New Rx's Prescriptions: No Action lisinopril 5 mg Tablet 5 mg PO DAILY RF: 0 lamotrigine [Lamictal] 150 mg Tablet 150 mg PO BID RF: 0 pantoprazole 20 mg Tablet,Delayed Release (Dr/Ec) 20 mg PO DAILY RF: 0 lorazepam 1 mg Tablet 1.5 mg PO DAILY PRNRF: 0 dextroamphetamine-amphetamine 20 mg tablet 20 mg PO BID PRNRF: 0 gabapentin 300 mg capsule 900 mg PO TID RF: 0 dextroamphetamine-amphetamine 30 mg capsule,extended release 24hr 30 mg PO BID RF: 0 Discharge Instructions Additional Instructions: please follow-up with pcp this week return with worsening anxiety, chest discomfort, or should any new concerns arise Discharge Data Discharge Date/Time-TO BE ENTERED AT DEPARTURE: 08/02/20 14:48 Medical Decision Making Case discussed with poison control and they recommend 2 hours of observation the patient is over 2 hours after taking her Adderall She has remained alert, oriented, of decisional capacity without any evidence of syncope or seizure-like activity She actually feels improved and ambulatory, she will be discharged home in st able condition with stable vitals, again this was not an attempt to harm herself in any way and this was accidental overdose, patient is aware that she should use caution and ensure that she is only taking her prescribed medications daily and follow-up with her primary care physician in the outpatient setting Given the threshold to return should she have new or worsening complaints Differential Diagnosis Differential Diagnosis: Accidental overdose, syncope, seizure Medical Records Medical records reviewed: Yes I reviewed the patient's medical records. Lab Data Lab results reviewed: Yes I reviewed the patient's lab results. HPI General Mode of arrival: ambulatory . Date/Time Provider Initiated Documentation: 08/02/20 12:23 . Limitations to Documentation: no limitations . Information obtained by: patient . HPI Narrative: This very pleasant 54-year-old female presents with accidental overdose on Adderall. She took 2 of her 30 mg extended release medication and an additional 2 of her 40 mg instant release Adderall. She states that she forgot she took her medications. She states she feels slightly anxious but no more so than usual. She denies any chest pain or shortness of breath. She denies any syncopal or fainting spells. She states she has been on this medication for an extended period of time. She took her medication within 1 hour she took repeat. She denies any chest comfort. She denies any chance of . She denies any suicidal or homicidal ideation. X-ray present Related Data Home Medications Medication Instructions Recorded Confirmed lamotrigine [Lamictal] 150 mg PO BID 06/07/20 08/02/20 lisinopril 5 mg PO DAILY 06/07/20 08/02/20 lorazepam 1.5 mg PO DAILY PRN 06/07/20 08/02/20 pantoprazole 20 mg PO DAILY 06/07/20 08/02/20 dextroamphetamine-amphetamine 20 mg PO BID PRN 08/02/20 08/02/20 dextroamphetamine-amphetamine 30 mg PO BID 08/02/20 08/02/20 gabapentin 900 mg PO TID 08/02/20 08/02/20 Allergies Allergy/AdvReac Type Severity Reaction Status Date / Time No Known Allergies Allergy Unverified 08/02/20 12:20 General Stated Complaint: OD/Poison EDER: 4 Review of Systems Narrative: Review of systems obtained x7 aside from where indicated in HPI [facility] Medical History Depression Hypertension Surgical History History of section History of tonsillectomy Social History Smoking/Tobacco Use Status: Current every day Tobacco Type: e-cigarettes Tobacco: How many years used: 2 Smoking risk assessment performed?: Yes Alcohol Intake: current Alcohol Intake frequency: a few times a month Alcohol type: wine Drug use: Rarely Substance use type: marijuana Do you feel safe at home: Yes Do you feel safe in your relationship?: Yes Exam Const General: cooperative, comfortable and no acute distress Eyes Pupils: PERRL Chest Chest: normal inspection of the chest Resp Effort & Inspection: normal respiratory effort Auscultation: clear to auscultation bilaterally Cardio Rate: regular rate and tachycardic Neuro General: patient alert and patient oriented x3 Course Vital Signs Vital signs: Vital Signs Temperature 36.1 C L 06/10/21 12:18 Pulse 109 H 08/02/20 12:18 Respiratory Rate 18 08/02/20 12:18 Blood Pressure 146/89 H 08/02/20 12:18 Pulse Oximetry 98 08/02/20 12:18 Temperature 36.1 C L 08/02/20 12:18 Temperature Source Skin 08/02/20 12:18 Pulse 109 H 08/02/20 12:18 Respiratory Rate 18 08/02/20 12:18 Blood Pressure 146/89 H 08/02/20 12:18 Blood Pressure Position Sitting 08/02/20 12:18 Pulse Oximetry 98 08/02/20 12:18 Oxygen Delivery Method Room Air 08/02/20 12:18 Oxygen Flow Rate 0 08/02/20 12:18
== END 2020-08-02 14:48 | disposition home or self-care (01) ==
PROVIDERS: Emergency Provider Physician Assistant
DX: T43.621A Poisoning by amphetamines, accidental (unintentional), initial encounter (principal)
CPT/HCPCS: 93005; 99285; 93010; 99283

== ENCOUNTER 2020-10-12 18:48 | Emergency (ER) | payer MEDICAID, SELFPAY ==
[2020-10-12 18:56] VITALS: BP 154/83; PULSE 100; RESP 16; TEMP 36.8; O2SAT 100
--- NOTE | 2020-10-12 19:00 | DI.CT_ITS ---
Exam(s) CT HEAD CERV SPINE FACIAL WO EXAM: CT HEAD CERV SPINE FACIAL WO CLINICAL HISTORY: s/p head inj, hit R forehead. TECHNIQUE: Imaging Protocol: Axial computed tomography images with coronal and sagittal reformatted images were created and reviewed COMPARISON: CT CT BRAIN NECK CTA from 06/13/2020 FINDINGS: CT BRAIN: There are no skull fractures nor fluid in the visualized paranasal sinuses. Mucosal thickening is no daphne in the maxillary sinuses There is no evidence of intracranial hemorrhage, mass effect, or shift of midline structures. There are no extra-axial fluid collections. The ventricles are not enlarged or shifted and there is no blo od within the ventricular system nor within the basal cisterns. CT MAXILLOFACIAL BONES: There is no evidence of facial fractures no evidence of orbital blowout fracture. Mucosal thickening is noted in the maxillary sinuses, left more so than right. No associated fluid l evels nor bone dehiscence. Remainder of the paranasal sinuses including the frontal sinuses are jennifer r. CT CERVICAL SPINE: No evidence of fracture. Advanced disc space narrowing at C5-6 level noted. Mild retrolisthesis DC C5 upon C6 on degenerative basis. Bilateral Luschka joint osteophytes at this level. Some facet art hropathy is noted, most prominently on the left side at C 3-4 level. No cervical ribs. No significant osseous lesions evident. IMPRESSION: No acute intracranial findings on this noninfused CT scan of the brain. No evidence of facial nor orbital blowout fractures.Maxillary sinus mucosal disease, more prominent o n the left side. No associated fluid levels. No bone dehiscence. No evidence of cervical spine fracture, malalignment, nor acute compromise of the cervical spinal can al. Chronic degenerative disc disease C5-6 level. Facet arthropathy. Sign in RADIATION DOSE DELIVERED: 1,574.77mGy.cm Total DLP DATA REPOSITORY: All CT scans at this facility are submitted to the National Radiology Data Registry (NRDR) Dose Index Registry (DIR) with the [employer] ([employer]). RADIATION OPTIMIZATION: All CT scans at this facility use at least one of these dose optimization te chniques: automated exposure control; mA and/or kV adjustment per patient size (includes targeted exa ms where dose is matched to clinical indication); or iterative reconstruction.
--- NOTE | 2020-10-12 19:15 | ED.GENADUL_ITS ---
Discharge Plan Disposition Patient Disposition: HOME Condition: Stable Discharge Details Clinical Impression: Closed head injury without loss of consciousness, Post-concussion headache Primary Care Provider: Unknown,Unknown ED Provider: Marilynn Mendez Home Meds and New Rx's Prescriptions: Continued lamotrigine [Lamictal] 150 mg Tablet 150 mg PO BID RF: 0 lorazepam 1 mg Tablet 1.5 mg PO DAILY PRNRF: 0 dextroamphetamine-amphetamine 20 mg tablet 20 mg PO BID PRNRF: 0 gabapentin 300 mg capsule 900 mg PO TID RF: 0 dextroamphetamine-amphetamine 30 mg capsule,extended release 24hr 30 mg PO BID RF: 0 Discharge Instructions Instructions: Head Injury (ED), Post Concussion Syndrome (ED), General Headache (ED) Additional Instructions: Drink plenty of fluids and get plenty of rest. Alternate tylenol and motrin as needed and directed for pain. Take your lorazepam that you have at home as needed and directed to help with anxiety or sleep. Follow-up with your primary care doctor in 1 week. Return to the emergency department with any worsening or new concerning symptoms. Discharge Data Discharge Date/Time-TO BE ENTERED AT DEPARTURE: 10/12/20 21:15 Discharge Physician: Marilynn Mendez Medical Decision Making 55-year-old female presents with right-sided orbital and right-sided headaches after mechanical fall with head injury 10 days ago. Blood pressure mildly elevated, otherwise vitals within normal limits. Patient appears somewhat anxious and tearful stating that she has had increased stress recently as she is moving and has been having difficulty sleeping due to her increased stress recently. No evidence of trauma on exam. No focal deficits. Patient referred for CT head/facial bones and cervical spine which was negative for acute findings. She states she has lorazepam at home that she takes as needed for anxiety, but usually before a long car drive. She was given a dose of ibuprofen and Ativan p.o. here with some relief. She was advised to take her lorazepam at home as needed for help with sleep or anxiety. Advised on the importance of increasing rest, fluids, supportive care. Advised to follow up with the primary care doctor for re-evaluation. Usual and customary return precautions given prior to discharge. Medical Records Medical records reviewed: Yes I reviewed the patient's medical records. Imaging Data Radiologic Study: Radiologist's impression: CT Head Without Contrast Exam date and time: 10/12/2020 7:15 PM Age: 55 years old Clinical indication: Other: S/P head inj, hit R forehead TECHNIQUE: Imaging protocol: Computed tomography of the head without contrast. Radiation optimization: All CT scans at this facility use at least one of these dose optimization techniques: automated exposure control; mA and/or kV adjustment per patient size (includes targeted exams where dose is matched to clinical indication); or iterative reconstruction. COMPARISON: CT BRAIN NECK CTA 06/13/2020 12:09 AM FINDINGS: Brain: Normal volume for age. No hemorrhage. No significant white matter disease. No edema. No midline shift or herniation. Cerebral ventricles: No ventriculomegaly. Paranasal sinuses: Mucosal thickening in the left maxillary sinus. Paranasal sinuses appropriately aerated without air-fluid levels. Mastoid air cells: No mastoid effusion. Bones/joints: Unremarkable. No acute osseous finding. Soft tissues: No focal soft tissue abnormality. IMPRESSION: No acute intracranial finding. CT Maxillofacial Without Contrast Exam date and time: 10/12/2020 7:15 PM Age: 55 years old Clinical indication: Other: S/P head inj, hit R forehead TECHNIQUE: Imaging protocol: Computed tomography images of the face without contrast. Radiation optimization: All CT scans at this facility use at least one of these dose optimization techniques: automated exposure control; mA and/or kV adjustment per patient size (includes targeted exams where dose is matched to clinical indication); or iterative reconstruction. COMPARISON: CT BRAIN NECK CTA 06/13/2020 12:09 AM FINDINGS: Orbital cavity: Orbits are normal. Globes are unremarkable. Bones/joints: No acute fracture. Nasal septum is midline. Paranasal sinuses: Mucosal thickening within the left maxillary sinus. Also noted small mucous retention cyst in the right maxillary sinus. Paranasal sinuses appropriately aerated without air-fluid level. Soft tissues: No focal abnormality. IMPRESSION: No acute fracture. CT Cervical Spine Without Contrast Exam date and time: 10/12/2020 7:15 PM Age: 55 years old Clinical indication: Other: S/P head inj, hit R forehead TECHNIQUE: Imaging protocol: Computed tomography images of the cervical spine without contrast. Radiation optimization: All CT scans at this facility use at least one of these dose optimization techniques: automated exposure control; mA and/or kV adjustment per patient size (includes targeted exams where dose is matched to clinical indication); or iterative reconstruction. COMPARISON: CT BRAIN NECK CTA 06/13/2020 12:09 AM FINDINGS: Bones/joints: No acute fracture. Minimal grade 1 anterolisthesis of C4 on C5 and grade 1 retrolisthesis of C5 on C6 appears degenerative suspected secondary to degenerative facet changes. There is straightening of normal cervical lordosis which may be secondary to patient positioning versus muscle spasm. Degenerative facet changes asymmetric to the right at the C4-T1 levels and asymmetric to the left at the C2-C4 levels. Discs/Spinal canal/Neural foramina: Moderate intervertebral disc height loss at C5-C6 with degenerative endplate changes and uncovertebral hypertrophy. There is mild relative left osseous neural foraminal narrowing at C3-C4 and C5-C6, mild relative right osseous neural foraminal narrowing at C4-C5. Osseous central canal is patent. Thyroid: No mass. Lymph nodes: No pathologically sized nodes by CT size criteria. Lungs: Lung apices are clear. Vasculature: Vascular calcifications within the bilateral carotid bulbs. Soft tissues: No focal abnormality. IMPRESSION: 1. No acute fracture. 2. Cervical spondylosis as discussed. HPI General Mode of arrival: ambulatory . Date/Time Provider Initiated Documentation: 10/12/20 19:13 . Limitations to Documentation: no limitations . Information obtained by: patient . HPI Narrative: Patient is a 55-year-old female who presents with right sided headache and pain lateral to her right eye after head injury 10 days ago. Patient states she was walking at home when she tripped and hit the right side of her face and head on a wooden door. She denies LOC, vomiting at the time of event but states she has had persistent right-sided headaches which have gotten progressively worse since then. She has not taken any medication for pain. She denies any blurry vision, dizziness, vomiting, neck pain or any other injury. She states she also hit her right knee denies any pain in this area. Patient states she has had increased stress recently leading her to have difficulty sleeping. She states she is moving to [place] soon and and has been packing a lot recently. She states she has not been staying as hydrated as she should be and feels this may be contributing to her headaches. Related Data Home Medications Medication Instructions Recorded Confirmed lamotrigine [Lamictal] 150 mg PO BID 06/07/20 10/12/20 lorazepam 1.5 mg PO DAILY PRN 06/07/20 10/12/20 dextroamphetamine-amphetamine 20 mg PO BID PRN 08/02/20 10/12/20 dextroamphetamine-amphetamine 30 mg PO BID 08/02/20 10/12/20 gabapentin 900 mg PO TID 08/02/20 10/12/20 Allergies Allergy/AdvReac Type Severity Reaction Status Date / Time No Known Allergies Allergy Unverified 10/12/20 19:05 General Stated Complaint: HeadInjury EDER: 3 Review of Systems All systems reviewed & are unremarkable except as noted in HPI and below Constitutional Constitutional: Reports as per HPI, Denies chills, Denies fever(s) and Reports headache(s) Eyes Eyes: Denies blurry vision ENT Ears, Nose, Mouth, and Throat: Denies dizziness, Reports headache(s), Denies sore throat and Denies throat swelling Cardiovascular Cardiovascular: Denies chest pain and Denies dyspnea Respiratory Respiratory: Denies cough and Denies dyspnea Gastrointestinal Gastrointestinal: Denies abdominal pain, Denies diarrhea and Denies vomiting Genitourinary Genitourinary: Denies hematuria and Denies dysuria Musculoskeletal Musculoskeletal: Denies back pain and Denies numbness Integumentary/Breasts Skin/Breast: Denies lesions and Denies rash Neurologic Neurologic: Denies dizziness, Reports headache(s), Denies localized weakness and Denies numbness Allergic/Immunologic Allergic/Immunologic: Denies throat swelling PFSH Medical History Depression Hypertension Surgical History History of section History of tonsillectomy Social History Smoking/Tobacco Use Status: Current every day Tobacco Type: e-cigarettes Tobacco: How many years used: 2 Smoking risk assessment performed?: Yes Alcohol Intake: current Alcohol Intake frequency: a few times a week Alcohol type: wine Drug use: Rarely Substance use type: marijuana Do you feel safe at home: Yes Do you feel safe in your relationship?: Yes Exam Const General: cooperative, healthy appearing and no acute distress [facility] Head: normal to inspection, no palpable skull fracture, normocephalic and atraumatic Ears: hearing grossly normal bilaterally, external ears normal and TM's normal bilaterally General nose exam: external nose normal Face and sinus: normal facial exam Mouth: oral mucosae normal Teeth and gingiva: dentition normal Throat: posterior oropharynx normal Eyes General: appearance normal, both eyes and all related structures Pupils: PERRL EOM: EOM intact bilaterally Neck Neck: normal visual inspection and No submandibular swelling Lymphatic: no lymphadenopathy noted Chest Chest: normal inspection of the chest and no tenderness Resp Effort & Inspection: normal respiratory effort and able to speak in complete sentences Auscultation: clear to auscultation bilaterally Cardio Rate: regular rate Rhythm: regular rhythm GI Inspection: normal to inspection Palpation: soft, not firm, not rigid and nontender Auscultation: normal bowel sounds Back/Spine/Pelvis Thoracic/Lumbar Spine: thoracic and lumbar spine normal to inspection Pelvis: no pain with anterior-posterior compression Skin General skin exam: no rashes or lesions noted Neuro General: patient alert, patient awake, patient oriented x3, moves all extremities, no meningeal signs and no focal motor deficits Cranial Nerves: CN's II-XI intact bilaterally Cognition: normal cognition Speech: speech normal Motor: muscle tone normal throughout and strength 5/5 throughout Sensory Exam: no sensory deficits noted Extrem General: normal to inspection, full ROM, capillary refill normal, no calf tenderness bilaterally and no edema Other: R anterior knee with 1cm healed abrasion/crust infrapatellar region w/o cellulitis, ecchymoses, deformity with normal ROM. Psych Appearance: grossly normal Mental Status: mental status grossly normal Speech and Movement: speech and movement normal Affect: normal affect Course Vital Signs Vital signs: Vital Signs Temperature 98.2 F 10/12/20 18:56 Pulse 100 H 10/12/20 18:56 Respiratory Rate 16 10/12/20 18:56 Blood Pressure 154/83 H 10/12/20 18:56 Pulse Oximetry 100 10/12/20 18:56 Temperature 98.2 F 10/12/20 18:56 Temperature Source Temporal Artery Scan 10/12/20 18:56 Pulse 100 H 10/12/20 18:56 Respiratory Rate 16 10/12/20 18:56 Respiratory Effort Non-Labored 10/12/20 19:03 Respiratory Depth Normal 10/12/20 19:03 Respiratory Pattern Normal 10/12/20 19:03 Blood Pressure 154/83 H 10/12/20 18:56 Blood Pressure Position Sitting 10/12/20 18:56 Pulse Oximetry 100 10/12/20 18:56 Oxygen Delivery Method Room Air 10/12/20 18:56 Oxygen Flow Rate 0 10/12/20 18:56 Pain Level 4 10/12/20 18:56
[2020-10-12 20:26] VITALS: BP 162/97; PULSE 86; PULSE 99; RESP 18; O2SAT 97; O2SAT 98
[2020-10-12 20:27] VITALS: O2SAT 97
--- NOTE | 2020-10-12 20:27 | NUR.NOTE ---
Moved to room 4. Provided with ice water and warm blanket. Requests something to calm her down. Reports she takes lorazepam 1.5mg before long drives and that works for her. Nursing Note:
--- NOTE | 2020-10-12 20:34 | DI.VRAD_ITS ---
PROCEDURE INFORMATION: Exam: CT Head Without Contrast Exam date and time: 10/12/2020 7:15 PM Age: 55 years old Clinical indication: Other: S/P head inj, hit R forehead TECHNIQUE: Imaging protocol: Computed tomography of the head without contrast. Radiation optimization: All CT scans at this facility use at least one of these dose optimization techniques: automated exposure control; mA and/or kV adjustment per patient size (includes targeted exams where dose is matched to clinical indication); or iterative reconstruction. COMPARISON: CT BRAIN NECK CTA 06/13/2020 12:09 AM FINDINGS: Brain: Normal volume for age. No hemorrhage. No significant white matter disease. No edema. No midline shift or herniation. Cerebral ventricles: No ventriculomegaly. Paranasal sinuses: Mucosal thickening in the left maxillary sinus. Paranasal sinuses appropriately aerated without air-fluid levels. Mastoid air cells: No mastoid effusion. Bones/joints: Unremarkable. No acute osseous finding. Soft tissues: No focal soft tissue abnormality. IMPRESSION: No acute intracranial finding. PROCEDURE INFORMATION: Exam: CT Maxillofacial Without Contrast Exam date and time: 10/12/2020 7:15 PM Age: 55 years old Clinical indication: Other: S/P head inj, hit R forehead TECHNIQUE: Imaging protocol: Computed tomography images of the face without contrast. Radiation optimization: All CT scans at this facility use at least one of these dose optimization techniques: automated exposure control; mA and/or kV adjustment per patient size (includes targeted exams where dose is matched to clinical indication); or iterative reconstruction. COMPARISON: CT BRAIN NECK CTA 06/13/2020 12:09 AM FINDINGS: Orbital cavity: Orbits are normal. Globes are unremarkable. Bones/joints: No acute fracture. Nasal septum is midline. Paranasal sinuses: Mucosal thickening within the left maxillary sinus. Also noted small mucous retention cyst in the right maxillary sinus. Paranasal sinuses appropriately aerated without air-fluid level. Soft tissues: No focal abnormality. IMPRESSION: No acute fracture. PROCEDURE INFORMATION: Exam: CT Cervical Spine Without Contrast Exam date and time: 10/12/2020 7:15 PM Age: 55 years old Clinical indication: Other: S/P head inj, hit R forehead TECHNIQUE: Imaging protocol: Computed tomography images of the cervical spine without contrast. Radiation optimization: All CT scans at this facility use at least one of these dose optimization techniques: automated exposure control; mA and/or kV adjustment per patient size (includes targeted exams where dose is matched to clinical indication); or iterative reconstruction. COMPARISON: CT BRAIN NECK CTA 06/13/2020 12:09 AM FINDINGS: Bones/joints: No acute fracture. Minimal grade 1 anterolisthesis of C4 on C5 and grade 1 retrolisthesis of C5 on C6 appears degenerative suspected secondary to degenerative facet changes. There is straightening of normal cervical lordosis which may be secondary to patient positioning versus muscle spasm. Degenerative facet changes asymmetric to the right at the C4-T1 levels and asymmetric to the left at the C2-C4 levels. Discs/Spinal canal/Neural foramina: Moderate intervertebral disc height loss at C5-C6 with degenerative endplate changes and uncovertebral hypertrophy. There is mild relative left osseous neural foraminal narrowing at C3-C4 and C5-C6, mild relative right osseous neural foraminal narrowing at C4-C5. Osseous central canal is patent. Thyroid: No mass. Lymph nodes: No pathologically sized nodes by CT size criteria. Lungs: Lung apices are clear. Vasculature: Vascular calcifications within the bilateral carotid bulbs. Soft tissues: No focal abnormality. IMPRESSION: 1. No acute fracture. 2. Cervical spondylosis as discussed. Dictated and Authenticated by: Andres Martinez MD. Ordering:GIANLUCA Subramanian MD
[2020-10-12 21:06] VITALS: BP 148/75; PULSE 99; RESP 18; TEMP 36.8; O2SAT 97
[2020-10-12] MEDS: LORazepam 1 MG TAB PO (21:06)
[2020-10-12] MEDS: Ibuprofen 600 MG TAB PO (21:06)
== END 2020-10-12 21:15 | disposition home or self-care (01) ==
PROVIDERS: Emergency Provider Physician Assistant
DX: S09.8XXA Other specified injuries of head, initial encounter (principal); F07.81 Postconcussional syndrome; G44.319 Acute post-traumatic headache, not intractable; W01.198A Fall on same level from slipping, tripping and stumbling with subsequent striking against other object, initial encounter
CPT/HCPCS: 99284; 70450; 70486; 72125; 99285

== ENCOUNTER 2021-05-21 18:31 | Outpatient (REF) | payer MEDICAID, SELFPAY ==
[2021-05-21 16:51] LABS: HCT 41.7 % (36.0-46.0); HGB 12.9 g/dL (11.2-15.7); MCH 28.2 pg (27.0-33.0); MCHC 30.9 % (32.0-36.0); MPV 9.7 fL (8.0-11.0); Platelet Count 327 10^3/uL (130-400); RBC 4.58 10^6/uL (3.93-5.22); RDW 12.9 % (11.7-14.6); RDW-SD 41.8 fL; WBC 4.86 10^3/uL (4.4-10.8)
[2021-05-21 17:26] LABS: Anion Gap 9.9 mmol/L (3-11); BUN 18 mg/dL (7-18); CO2 29.1 mmol/L (21.0-32.0); CREATININE 0.7 mg/dL (0.55-1.02); Calcium 9.1 mg/dL (8.5-10.1); Calculated LDL 116 mg/dL (<100); Chloride 104 mmol/L (98-107); Cholesterol 222 mg/dL (<200); Glucose 96 mg/dL (74-106); HDL Cholesterol 76 mg/dL (40-60); Potassium 3.7 mmol/L (3.5-5.1); Sodium 143 mmol/L (136-145); Triglyceride 151 mg/dL (<150)
== END 2021-05-21 18:32 | disposition home or self-care (01) ==
LOC: NCHCN 18:31
PROVIDERS: Visit Provider Physician Assistant
DX: Z00.00 Encounter for general adult medical examination without abnormal findings (principal)
CPT/HCPCS: 80048; 80061; 85027

== ENCOUNTER 2021-06-27 02:33 | Outpatient (CLI) | payer MEDICAID, SELFPAY ==
--- NOTE | 2021-06-27 13:06 | DI.MAMMO_ITS ---
Exam(s) MAMMO SCREENING EXAM: MAMMO SCREENING CLINICAL HISTORY: ANNUAL EXAM Z00.00, SCREENING FOR BREAST CANCER. TECHNIQUE: Bilateral full field digital CC and MLO mammographic images were obtained with 3D tomosyn thesis and utilizing computer aided detection (CAD). COMPARISON: Prior mammograms were reviewed, the most recent being 2016. FINDINGS: Fibroglandular tissue again noted be moderately dense, this somewhat decreasing the sensitivity of th e mammogram for finding hidden underlying lesions. No new significant radiograph findings in the right breast. There are no new significant radiograph findings in the immediate vicinity of the biopsy marker clip at approximately 12 o'clock position left breast. However, on CC view there is an asymmetric density-possible nodule in the left breast seen located ap proximately 6 cm in from the nipple. Spot compression view recommended. There are no malignant-appe aring microcalcification groups in this region or elsewhere in either breast. There is no new jaquelin ectural distortion or skin thickening-traction IMPRESSION: 1. No radiographic evidence of malignancy in the right breast. 2. Asymmetric density-possible nodule in left breast. Spot compression CC view and ultrasound recomm ended BI-RADS Category 0 - Assessment Incomplete: Need additional imaging evaluation Breast Density - Category C - Heterogeneously dense Breast density Category C or D implies that the patient has dense breast tissue. Dense breast tissue can make it harder to find cancer on a mammogram. Dense breast tissue is also associated with an incr eased risk of breast cancer. This information about the result of the mammogram report was provided to the patient to raise their awareness. Use this report when you speak with the patient about their risks for breast cancer, which includes their family history. At that time, you may recommend additional screening tests (Ultrasoun d or MRI) as these tests may add significant information. A negative radiographic report should not delay biopsy if a dominant or clinically suspicious mass is present. Up to ten percent of cancers are not identified on mammography. A negative report may reinforce clinical impression. Adenosis and dense breasts may obscure an underlying neoplasm. False positive reports average 6 to 10%. Patient will receive a letter notifying them of these results.
== END 2021-06-27 02:53 ==
PROVIDERS: Visit Provider Physician Assistant
DX: Z12.31 Encounter for screening mammogram for malignant neoplasm of breast (principal); R92.8 Other abnormal and inconclusive findings on diagnostic imaging of breast
CPT/HCPCS: 77063; 77067

== ENCOUNTER → 2021-07-12 01:17 | Outpatient (CLI) | payer MEDICAID, SELFPAY ==
--- NOTE | 2021-07-12 13:50 | DI.MAMMO_ITS ---
Exam(s) MG MAMMO SCREEN CALL BACK UNI US BREAST LT LIMITED EXAM: MG MAMMO SCREEN CALL BACK UNI and U/S breast LT limited CLINICAL HISTORY: F/U ABNL MAMMO, ASYMMETRIC DENSITY-POSSIBLE NODULE, LT BREAST. TECHNIQUE: Craniocaudal and mediolateral oblique Full Field Digital Mammography views of the left br east with Computer Aided Diagnosis followed by Tomosynthesis and left breast ultrasound. COMPARISON: Comparison with prior examinations. FINDINGS: Mammography/Tomosynthesis: Masses/Architectural Distortion: There is a well-circumscribed 4 mm nodule in the outer left breast. Microcalcifictions: No suspicious pleomorphic-type are seen. Skin Thickening/Nipple Retraction: None. Limited left breast US: Echotexture: Normal appearance of the glandular tissue. Shadowing: No suspicious foci. Cyst: There is a well-circumscribed 0.5 cm simple cyst at the 2 o'clock position 5 cm from the nipple . This appears to correspond to the mammographic abnormality. There is also a 0.6 cm well-circumscr ibed cyst at the 2 o'clock position 3 cm from the nipple. No suspicious cystic masses. Solid lesions: None seen. Ductal dilation: None. IMPRESSION: 1. No evidence of malignancy is noted. 2. Unless there is more urgent need, follow-up screening mammography is recommended, as per [employer] guidelines. 3. The findings were discussed with the patient on the date of the examination. BI-RADS Category 2 - Benign Findings Breast Density - Category C - Heterogeneously dense Breast density Category C or D implies that the patient has dense breast tissue. Dense breast tissue can make it harder to find cancer on a mammogram. Dense breast tissue is also associated with an incr eased risk of breast cancer. This information about the result of the mammogram report was provided to the patient to raise their awareness. Use this report when you speak with the patient about their risks for breast cancer, which includes their family history. At that time, you may recommend additional screening tests (Ultrasoun d or MRI) as these tests may add significant information. A negative radiographic report should not delay biopsy if a dominant or clinically suspicious mass is present. Up to ten percent of cancers are not identified on mammography. A negative report may reinforce clinical impression. Adenosis and dense breasts may obscure an underlying neoplasm. False positive reports average 6 to 10%. Patient will receive a letter notifying them of these results.
== END ==
PROVIDERS: Visit Provider Physician Assistant
DX: Z12.31 Encounter for screening mammogram for malignant neoplasm of breast (principal); R92.8 Other abnormal and inconclusive findings on diagnostic imaging of breast; N60.12 Diffuse cystic mastopathy of left breast
CPT/HCPCS: 76642; 77063; 77067